=== PATIENT | female | born 1970 | race Caucasian/White ===

== ENCOUNTER 2023-03-23 17:02 | Inpatient (IN) | payer OTHER ==
[~2023-03-23 17:02] MED LIST: Iopamidol-370 76% 500 ML MDV (1 ML CHARGE) ONE
[2023-03-23] MEDS ORDERED: Rocuronium Bromide 10 MG/ML (10ML VIAL) ONE (17:09)
[2023-03-23] MEDS ORDERED: niCARdipine 25 MG/10 ML SDV ONE ×3 (17:24→21:13)
[2023-03-23 17:32] LABS: Hematocrit 40.4 % (36.0-47.0); Hemoglobin 14.1 g/dL (12.0-16.0); Mean Corpuscular HGB CONC 34.9 g/dL (32.0-36.0); Mean Corpuscular Hemoglobin 35.1 pg (27.0-31.0); Mean Corpuscular Volume 100.5 fl (78.0-98.0); Mean Platelet Volume 8.9 fL (7.4-10.4); Platelet Count 196 10x3/uL (130-400); RBC Distribution Width 12.7 % (11.5-14.5); Red Blood Cell (RBC) Count 4.02 mill/uL (4.20-5.40); White Blood Cell (WBC) Count 20.5 10x3/uL (4.8-10.8)
[2023-03-23 17:37] LABS: Delete Auto Diff?? YES; Manual Diff?? YES
[2023-03-23 17:47] LABS: INR-International Normal Ratio 1.3; Prothrombin Time 16.4 sec (12.0-14.7)
[2023-03-23 17:48] LABS: PTT 27.2 sec (22.9-36.1)
[2023-03-23] MEDS ORDERED: Acetaminophen 325 MG Suppository ONE (17:51)
[2023-03-23] MEDS ORDERED: Aspirin 300 MG Suppository ONE (17:51)
[2023-03-23 17:53] LABS: Actual Bicarbonate (HCO3a) 21.7 mEq/L (22-28); Analyzer IN Cardio ER; CO2 Tension 37.6 mmHg (35.0-45.0); Calcium, Ionized (arterial) 1.16 mmol/L (1.12-1.30); Carboxyhemoglobin (COHb) 0.6 gm% (0.0-3.0); Hematocrit-ABG 41 % (36.0-47.0); Hemoglobin (Hb) 13.9 g/dL (12.0-16.0); O2 Tension (PaO2), arterial 258.1 mmHg (80.0-100.0); Potassium - ABG Lab 2.83 mmol/L (3.70-5.30); pH, Arterial 7.379 (7.35-7.45)
[2023-03-23 17:54] LABS: Puncture Site RRA
[2023-03-23 17:56] LABS: Troponin I Less than 0.010 ng/mL (< 0.028)
[2023-03-23] MEDS ORDERED: Sodium Chloride 0.9% 100 ML ONE ×2 (17:58→20:34)
[2023-03-23] MEDS ORDERED: Cefepime 2 GM VIAL ONE (17:58)
[2023-03-23 17:59] LABS: ALT (SGPT) 13 U/L (8-55); AST (SGOT) 16 U/L (5-34); Albumin 4.4 g/dL (3.5-5.0); Alkaline Phosphatase 82 U/L (40-110); Anion Gap 13 mmol/L (10-20); BUN (Urea Nitrogen) 17 mg/dL (9.8-20.1); Bilirubin, Total 1.4 mg/dL (0.2-1.2); CK (CPK) 50 U/L (29-168); Calc. Creatinine Clearance 0 mL/min (70-130); Calcium 9.7 mg/dL (7.8-10.44); Carbon Dioxide 26 mmol/L (22-29); Chloride 100 mmol/L (98-107); Estimated GFR 73; Globulin 3.5 g/dL (2.4-3.5); Glucose 207 mg/dL (70-105); Potassium 3.1 mmol/L (3.5-5.1); Protein, Total 7.9 g/dL (6.0-8.3); Sodium 136 mmol/L (136-145)
[2023-03-23 18:06] LABS: Band 52 % (5-11); CellaVision Operator ID LAB.MJL; Macrocytosis SLIGHT = 6-15 cells HPF (0-5); Metamyelocyte 4 % (0-0); Monocytes 1 % (0-10); Neutrophil 42 % (42-75); Platelet Adequacy Comment Platelets Normal; Reactive Lymphocytes 1 % (0-10); Reflex for Review?? YES; Tear Drops SLIGHT = 2-5 cells HPF (0-1); Total Cell Count 105; Toxic Granulation SLIGHT; Vacuoles SLIGHT
[2023-03-23] MEDS ORDERED: Vancomycin 1 GM/200 ML (FROZEN) BAG ONE (18:17)
[2023-03-23] MEDS ORDERED: fentaNYL 50 mcg/mL 1 mL Vial ONE (18:21)
[2023-03-23 18:23] LABS: Bacteria/HPF None Seen HPF (None Seen); Bilirubin Negative (Negative); Blood, Urine Negative (Negative); CAUTI Indications for Culture Alt mental st,lethar; Clarity Clear (Clear); Glucose, Urine (Dipstick) 50 mg/dL (Negative); Ketone, Urine 60 mg/dL (Negative); Leukocyte Negative Leu/uL (Negative); Mucous/LPF 1+ LPF (<2+); Nitrite Negative (Negative); Protein, Urine (Dipstick) 200 mg/dL (Neg-Trace); RBC/HPF 0-3 HPF (0-3); Specific Gravity, Urine 1.036 (1.002-1.036); Squamous Epithelial None Seen HPF (0-3); Urobilinogen Normal mg/dL (Less than 2); WBC/HPF 0-3 HPF (0-3)
[2023-03-23 18:26] LABS: Urine Culture Reflex No No
[2023-03-23] MEDS ORDERED: Fentanyl CADD 100 ML IV SCH (18:30)
[2023-03-23] MEDS ORDERED: Vancomycin 1 GM in Premix 1 BAG IVPB SCH (18:30)
[2023-03-23 18:55] LABS: SARS-CoV-2 NAA Rapid Test Not Detected (NotDetected)
[2023-03-23 19:20] LABS: Unspun CSF Color PALE YELLOW (Colorless)
[2023-03-23 19:21] LABS: Tube # 2
[2023-03-23 19:23] LABS: Color Of CSF Supernatant COLORLESS (Colorless)
[2023-03-23] MEDS ORDERED: Dexamethasone 10 MG/ML VIAL ONE (19:23)
[2023-03-23 19:34] LABS: CSF Source CSF; Clarity Hazy (Clear); Tube # 1
[2023-03-23 19:35] LABS: CSF Source CSF; Clarity Hazy (Clear); Tube # 4
[2023-03-23 19:41] LABS: CSF, Glucose Less than 5 mg/dl (40-70)
[2023-03-23 19:54] LABS: Cell Count Non Hematic 11 %; Lymphocytes 5 %; Segmented Neutrophils 84 %
[2023-03-23 19:57] LABS: Cell Count Non Hematic 10 %; Lymphocytes 3 %; Segmented Neutrophils 87 %
[2023-03-23 20:20] LABS: CSF, Protein 687 mg/dL (15-40)
[2023-03-23] MEDS ORDERED: levETIRAcetam 500 MG/5 ML VIAL ONE (20:33)
[2023-03-23] MEDS ORDERED: Ondansetron PF 4 MG/2 ML Vial IVP PRN (20:35)
[2023-03-23] MEDS ORDERED: Ondansetron ODT 4 MG TAB PO PRN (20:35)
[2023-03-23 21:20] LABS: Lactic Acid 3.1 mmol/L (0.5-2.2)
[2023-03-23] MEDS ORDERED: Ventilator Sedation Protocol 1 EACH FS SCH (21:30)
[2023-03-23] MEDS ORDERED: Ampicillin 2 GM in Sodium Chloride 0.9% 100 ML IVPB SCH (22:00)
[2023-03-23] MEDS ORDERED: Electrolyte Replacement Protocol 1 EACH FS SCH (22:15)
[2023-03-23] MEDS ORDERED: Potassium Chloride 20 MEQ in Premix 1 BAG IVPB SCH (22:15)
[2023-03-23] MEDS ORDERED: Fentanyl BOLUS 250 ML IVPB PRN (22:15)
[2023-03-23] MEDS ORDERED: Meropenem 1 GM in Sodium Chloride 0.9% 100 ML IVPB SCH ×2 (22:15→23:30)
[2023-03-23] MEDS ORDERED: Propofol BOLUS 1,000 MG/100 ML VIAL IV PRN (22:15)
[2023-03-23] MEDS ORDERED: Propofol 1,000 MG/100 ML VIAL IV PRN (22:15)
[2023-03-23] MEDS ORDERED: DISCONTINUE PREVIOUS NARCOTIC PAIN MEDICATIONS AND BENZODIAZEPINES FS SCH (22:15)
[2023-03-23] MEDS ORDERED: Acyclovir Sodium 800 MG in Sodium Chloride 0.9% 250 ML 250 ML IVPB SCH (22:30)
[2023-03-23] MEDS: Sodium Chloride 0.9% 1,000 ML IV SCH (23:09)
[2023-03-23] MEDS ORDERED: [UNRECOGNIZED DRUG - REMARK] IVPB PRN (23:27)
[2023-03-23] MEDS: Lorazepam 2 MG/ML VIAL SLOW IVP PRN (23:38)
[2023-03-23] MEDS ORDERED: levETIRAcetam 500 MG/5 ML VIAL SLOW IVP SCH (23:45)
[2023-03-23] MEDS ORDERED: SULFAMETHOXAZOLE IVPB SCH (23:59)
[2023-03-23] MEDS ORDERED: TRIMETHOPRIM IVPB SCH (23:59)
[2023-03-23] MEDS ORDERED: Ampicillin 125 MG/5 ML VIAL SLOW IVP SCH (23:59)
[2023-03-23] MEDS ORDERED: DEXTROSE 5% IVPB SCH (23:59)
[2023-03-23] MEDS ORDERED: WATER IVPB SCH (23:59)
[2023-03-24] MEDS: Acetaminophen 650 MG Suppository PR PRN ×2 (01:00→05:31)
[2023-03-24] MEDS: Meropenem 1 GM in Sodium Chloride 0.9% 100 ML IVPB SCH (04:22)
[2023-03-24] MEDS: Vancomycin (BATCH) 1.25 GM in Premix 1 BAG IVPB SCH ×2 (04:25→18:00)
[2023-03-24 05:02] LABS: #Monocytes 1.2 thou/uL (0.11-0.59); #Neutrophils 26.3 thou/uL (1.40-6.50); %Eosinophils 0.1 % (0.0-10.0); %Lymphocytes 1.7 % (21.0-51.0); %Monocytes 4.2 % (0.0-10.0); %Neutrophils 93.1 % (42.0-75.0); Hematocrit 38.2 % (36.0-47.0); Hemoglobin 13.1 g/dL (12.0-16.0); Mean Corpuscular HGB CONC 34.3 g/dL (32.0-36.0); Mean Corpuscular Hemoglobin 34.7 pg (27.0-31.0); Mean Corpuscular Volume 101.3 fl (78.0-98.0); Mean Platelet Volume 9.9 fL (7.4-10.4); Platelet Count 182 10x3/uL (130-400); RBC Distribution Width 12.9 % (11.5-14.5); Red Blood Cell (RBC) Count 3.77 mill/uL (4.20-5.40); White Blood Cell (WBC) Count 28.3 10x3/uL (4.8-10.8)
[2023-03-24 05:12] LABS: Manual Diff?? YES
[2023-03-24 05:29] LABS: Anion Gap 16 mmol/L (10-20); BUN (Urea Nitrogen) 13 mg/dL (9.8-20.1); Calc. Creatinine Clearance 116 mL/min (70-130); Calcium 8.4 mg/dL (7.8-10.44); Carbon Dioxide 20 mmol/L (22-29); Chloride 111 mmol/L (98-107); Estimated GFR 89; Glucose 184 mg/dL (70-105); Magnesium 1.9 mg/dL (1.6-2.6); Potassium 3.4 mmol/L (3.5-5.1); Sodium 144 mmol/L (136-145)
[2023-03-24 05:31] LABS: Phosphorus Less than 1.0 mg/dL (2.3-4.7)
[2023-03-24 05:46] LABS: Anisocytosis MODERATE=16-30 cells HPF (0-5); Band 44 % (5-11); CellaVision Operator ID LAB.CLH1; Macrocytosis SLIGHT = 6-15 cells HPF (0-5); Metamyelocyte 2 % (0-0); Monocytes 2 % (0-10); Neutrophil 52 % (42-75); Platelet Adequacy Comment Platelets Normal; Polychromasia SLIGHT = 2-3 cells HPF (0-2); Total Cell Count 102
[2023-03-24] MEDS ORDERED: Meropenem 1 GM in Sodium Chloride 0.9% 100 ML IVPB SCH ×2 (06:00→08:00)
[2023-03-24 06:58] LABS: Actual Bicarbonate (HCO3a) 23.3 mEq/L (22-28); Base Excess (BEa) 0.4 mEq/L (-2.0 to +3.0); CO2 Tension 32.6 mmHg (35.0-45.0); Calcium, Ionized (arterial) 1.18 mmol/L (1.12-1.30); Carboxyhemoglobin (COHb) 0.3 gm% (0.0-3.0); Hematocrit-ABG 40 % (36.0-47.0); Hemoglobin (Hb) 13.7 g/dL (12.0-16.0); O2 Tension (PaO2), arterial 172.8 mmHg (80.0-100.0); Potassium - ABG Lab 3.16 mmol/L (3.70-5.30); pH, Arterial 7.472 (7.35-7.45)
[2023-03-24] MEDS ORDERED: Potassium Phosphate 30 MMOL in Sodium Chloride 0.9% 250 ML 250 ML IVPB SCH (07:00)
[2023-03-24 07:03] LABS: Puncture Site LRA
[2023-03-24] MEDS ORDERED: Potassium Chloride 20 MEQ in Premix 1 BAG IVPB SCH (08:00)
[2023-03-24] MEDS ORDERED: Magnesium 2 GM/50 ML(in water) 2 GM in Premix 1 BAG IVPB SCH (08:00)
[2023-03-24] MEDS ORDERED: Dexamethasone 10 MG/ML VIAL SLOW IVP SCH (09:00)
[2023-03-24] MEDS: Sodium Chloride 0.9% 1,000 ML IV SCH (09:00)
[2023-03-24] MEDS ORDERED: FLU VACC QS2023(65UP)/MF59C/PF 60 MCG/0.5 ML SYRINGE IM ONE (09:00)
[2023-03-24] MEDS ORDERED: Famotidine/PF 20 mg/2ml Vial SLOW IVP SCH (09:00)
[2023-03-24] MEDS ORDERED: Ketorolac Tromethamine 30 MG/ML VIAL IVP SCH (09:45)
[2023-03-24] MEDS: levETIRAcetam 500 MG/5 ML VIAL SLOW IVP SCH ×2 (09:53→20:25)
[2023-03-24] MEDS: Pantoprazole 40 MG VIAL IVP SCH (09:57)
[2023-03-24] MEDS ORDERED: Multivit, Therapeutic 1 TAB PO SCH (10:00)
[2023-03-24] MEDS ORDERED: Thiamine 100 MG TAB PO SCH (10:00)
[2023-03-24] MEDS ORDERED: Folic Acid 1 MG TAB PO SCH (10:00)
[2023-03-24] MEDS: Lactated Ringer's 1,000 ML IV SCH ×2 (10:07→18:43)
[2023-03-24] MEDS: Dexamethasone 10 MG/ML VIAL SLOW IVP SCH ×3 (10:42→22:00)
[2023-03-24] MEDS ORDERED: dilTIAZem 25 MG/5 ML VIAL ONE (14:16)
[2023-03-24] MEDS ORDERED: dilTIAZem 25 MG/5 ML VIAL SLOW IVP SCH (14:30)
[2023-03-24] MEDS ORDERED: dilTIAZem 125 MG, Admixture Fee 1 EACH in Sodium Chloride 0.9% 100 ML IVPB SCH (14:30)
[2023-03-24] MEDS ORDERED: dilTIAZem 125 MG in Sodium Chloride 0.9% 100 ML IVPB SCH (14:30)
[2023-03-24] MEDS: Meropenem 2 GM, Admixture Fee 1 EACH in Sodium Chloride 0.9% 100 ML IVPB SCH ×2 (14:40→22:00)
[2023-03-24 14:47] LABS: Phosphorus 2.4 mg/dL (2.3-4.7)
[2023-03-24 15:00] LABS: Magnesium 2.8 mg/dL (1.6-2.6)
[2023-03-24] MEDS ORDERED: Amiodarone 150 MG, Admixture Fee 1 EACH in Dextrose 5% in Water 100 ML IVPB SCH (17:30)
[2023-03-24 17:32] LABS: Anion Gap 15 mmol/L (10-20); BUN (Urea Nitrogen) 13 mg/dL (9.8-20.1); Calc. Creatinine Clearance 128 mL/min (70-130); Carbon Dioxide 20 mmol/L (22-29); Chloride 114 mmol/L (98-107); Potassium 3.6 mmol/L (3.5-5.1); Sodium 145 mmol/L (136-145)
[2023-03-24 17:33] LABS: Calcium 8.8 mg/dL (7.8-10.44); Estimated GFR 102; Glucose 167 mg/dL (70-105)
[2023-03-24] MEDS: Amiodarone 450 MG, Admixture Fee 1 EACH in Dextrose 5% in Water 250 ML IVPB SCH (18:08)
[2023-03-25] MEDS: Acetaminophen 325 MG TAB PO PRN ×2 (02:24→02:25)
[2023-03-25] MEDS: Dexamethasone 10 MG/ML VIAL SLOW IVP SCH ×4 (03:53→22:04)
[2023-03-25 04:23] LABS: Hematocrit 39.3 % (36.0-47.0); Hemoglobin 13.2 g/dL (12.0-16.0); Mean Corpuscular HGB CONC 33.6 g/dL (32.0-36.0); Mean Corpuscular Hemoglobin 35.1 pg (27.0-31.0); Mean Platelet Volume 9.9 fL (7.4-10.4); Platelet Count 194 10x3/uL (130-400); RBC Distribution Width 13.3 % (11.5-14.5); Red Blood Cell (RBC) Count 3.76 mill/uL (4.20-5.40); White Blood Cell (WBC) Count 29.7 10x3/uL (4.8-10.8)
[2023-03-25 04:54] LABS: Phosphorus 2.4 mg/dL (2.3-4.7)
[2023-03-25 04:58] LABS: Anion Gap 13 mmol/L (10-20); BUN (Urea Nitrogen) 23 mg/dL (9.8-20.1); Calc. Creatinine Clearance 103 mL/min (70-130); Carbon Dioxide 24 mmol/L (22-29); Chloride 111 mmol/L (98-107); Estimated GFR 79; Glucose 190 mg/dL (70-105); Magnesium 2.7 mg/dL (1.6-2.6); Potassium 3.6 mmol/L (3.5-5.1); Sodium 144 mmol/L (136-145)
[2023-03-25 05:19] LABS: Delete Auto Diff?? YES; Manual Diff?? YES
[2023-03-25] MEDS ORDERED: Artificial Tear Sol 15 ML BOT EA EYE PRN (05:43)
[2023-03-25 05:51] LABS: Vancomycin, Trough 12.5 ug/mL
[2023-03-25] MEDS: Vancomycin (BATCH) 1.25 GM in Premix 1 BAG IVPB SCH ×3 (06:22→14:41)
[2023-03-25] MEDS: Meropenem 2 GM, Admixture Fee 1 EACH in Sodium Chloride 0.9% 100 ML IVPB SCH ×3 (06:22→22:04)
[2023-03-25] MEDS: Lactated Ringer's 1,000 ML IV SCH ×2 (06:27→15:11)
[2023-03-25 07:19] LABS: Actual Bicarbonate (HCO3a) 24.6 mEq/L (22-28); Base Excess (BEa) -1.3 mEq/L (-2.0 to +3.0); CO2 Tension 45.5 mmHg (35.0-45.0); Calcium, Ionized (arterial) 1.22 mmol/L (1.12-1.30); Carboxyhemoglobin (COHb) 0.5 gm% (0.0-3.0); Hematocrit-ABG 48 % (36.0-47.0); Hemoglobin (Hb) 16.2 g/dL (12.0-16.0); O2 Tension (PaO2), arterial 78.3 mmHg (80.0-100.0); Potassium - ABG Lab 3.73 mmol/L (3.70-5.30); pH, Arterial 7.351 (7.35-7.45)
[2023-03-25 07:21] LABS: CellaVision Operator ID LAB.GE; Platelet Adequacy Comment Platelets Normal; Polychromasia SLIGHT = 2-3 cells HPF (0-2)
[2023-03-25 07:30] LABS: ALV-art Gradient 150.025 mmHg (0-20); Puncture Site RRA
[2023-03-25 09:27] LABS: Band 33 % (5-11); Lymphocytes 2 % (21-51); Macrocytosis SLIGHT = 6-15 cells HPF (0-5); Metamyelocyte 3 % (0-0); Monocytes 3 % (0-10); Neutrophil 59 % (42-75); Total Cell Count 103; Toxic Granulation SLIGHT; Vacuoles SLIGHT
[2023-03-25] MEDS: levETIRAcetam 500 MG/5 ML VIAL SLOW IVP SCH ×2 (09:56→20:15)
[2023-03-25] MEDS: Thiamine 100 MG TAB PO SCH (09:57)
[2023-03-25] MEDS: Pantoprazole 40 MG VIAL IVP SCH (09:57)
[2023-03-25] MEDS: Folic Acid 1 MG TAB PO SCH (09:57)
[2023-03-25] MEDS: Multivit, Therapeutic 1 TAB PO SCH (09:57)
[2023-03-25] MEDS: Amiodarone 450 MG, Admixture Fee 1 EACH in Dextrose 5% in Water 250 ML IVPB SCH (14:05)
[2023-03-25] MEDS ORDERED: Refresh Lacri-lube Opth Oint 7 GM TUBE EA EYE PRN (17:24)
[2023-03-25] MEDS: MINERAL OIL/WHITE PETROLATUM 3.5 GM TUBE EA EYE PRN (18:44)
[2023-03-25 19:57] LABS: Mean Corpuscular Volume 104.5 fl (78.0-98.0)
[2023-03-26] MEDS: Lorazepam 2 MG/ML VIAL SLOW IVP PRN (01:13)
[2023-03-26] MEDS: Lactated Ringer's 1,000 ML IV SCH ×3 (01:17→21:23)
[2023-03-26 04:12] LABS: Hematocrit 37.8 % (36.0-47.0); Hemoglobin 12.6 g/dL (12.0-16.0); Mean Corpuscular HGB CONC 33.3 g/dL (32.0-36.0); Mean Corpuscular Hemoglobin 35.4 pg (27.0-31.0); Mean Corpuscular Volume 106.2 fl (78.0-98.0); Mean Platelet Volume 9.6 fL (7.4-10.4); Platelet Count 186 10x3/uL (130-400); RBC Distribution Width 13.4 % (11.5-14.5); Red Blood Cell (RBC) Count 3.56 mill/uL (4.20-5.40); White Blood Cell (WBC) Count 22.3 10x3/uL (4.8-10.8)
[2023-03-26 04:13] LABS: Delete Auto Diff?? YES; Manual Diff?? YES
[2023-03-26] MEDS: Amiodarone 450 MG, Admixture Fee 1 EACH in Dextrose 5% in Water 250 ML IVPB SCH (04:17)
[2023-03-26] MEDS: Dexamethasone 10 MG/ML VIAL SLOW IVP SCH ×4 (04:17→21:20)
[2023-03-26 04:33] LABS: Band 2 % (5-11); CellaVision Operator ID lab.abc; Lymphocytes 3 % (21-51); Macrocytosis SLIGHT = 6-15 cells HPF (0-5); Monocytes 1 % (0-10); Neutrophil 94 % (42-75); Platelet Adequacy Comment Platelets Normal; Polychromasia SLIGHT = 2-3 cells HPF (0-2); Smudge Cells 6.9 %; Total Cell Count 101
[2023-03-26 05:53] LABS: Anion Gap 10 mmol/L (10-20); BUN (Urea Nitrogen) 31 mg/dL (9.8-20.1); Calc. Creatinine Clearance 115 mL/min (70-130); Calcium 8.9 mg/dL (7.8-10.44); Carbon Dioxide 28 mmol/L (22-29); Chloride 111 mmol/L (98-107); Estimated GFR 87; Glucose 218 mg/dL (70-105); Phosphorus 1.9 mg/dL (2.3-4.7); Potassium 4.3 mmol/L (3.5-5.1); Sodium 145 mmol/L (136-145)
[2023-03-26] MEDS ORDERED: Glucagon 1 MG/ML KIT IM PRN (05:59)
[2023-03-26] MEDS ORDERED: Dextrose 5% in Water 1,000 ML IV PRN (05:59)
[2023-03-26] MEDS ORDERED: Dextrose 50% Abboject 50 ML SYRINGE SLOW IVP PRN (05:59)
[2023-03-26] MEDS: Meropenem 2 GM, Admixture Fee 1 EACH in Sodium Chloride 0.9% 100 ML IVPB SCH (06:04)
[2023-03-26] MEDS: hydrALAZINE 20 MG/ML VIAL SLOW IVP PRN ×2 (07:17→12:21)
[2023-03-26] MEDS: Fentanyl CADD 100 ML IV SCH ×2 (07:20→21:08)
[2023-03-26 07:27] LABS: Actual Bicarbonate (HCO3a) 26.6 mEq/L (22-28); Base Excess (BEa) 0.6 mEq/L (-2.0 to +3.0); Calcium, Ionized (arterial) 1.22 mmol/L (1.12-1.30); Carboxyhemoglobin (COHb) 0.4 gm% (0.0-3.0); Hematocrit-ABG 39 % (36.0-47.0); Hemoglobin (Hb) 13.3 g/dL (12.0-16.0); O2 Tension (PaO2), arterial 98.9 mmHg (80.0-100.0); Potassium - ABG Lab 4.26 mmol/L (3.70-5.30); pH, Arterial 7.361 (7.35-7.45)
[2023-03-26 07:59] LABS: Puncture Site RRA
[2023-03-26] MEDS ORDERED: Potassium Phosphate 15 MMOL in Sodium Chloride 0.9% 100 ML IVPB SCH (08:00)
[2023-03-26] MEDS ORDERED: cefTRIAXone Sodium 2,000 MG in Syringe 0 ML IVPB SCH (09:00)
[2023-03-26] MEDS: Multivit, Therapeutic 1 TAB PO SCH (09:58)
[2023-03-26] MEDS: levETIRAcetam 500 MG/5 ML VIAL SLOW IVP SCH ×2 (09:58→20:22)
[2023-03-26] MEDS: Thiamine 100 MG TAB PO SCH (09:58)
[2023-03-26] MEDS: Pantoprazole 40 MG VIAL IVP SCH (09:58)
[2023-03-26] MEDS: Folic Acid 1 MG TAB PO SCH (09:58)
[2023-03-26] MEDS: cefTRIAXone\\ROCEPHIN 2 GM in Sodium Chloride 0.9% 100 ML IVPB SCH ×2 (09:59→20:22)
[2023-03-26] MEDS: Amiodarone 200 MG TAB PO SCH ×2 (13:35→20:22)
[2023-03-26] MEDS: HumaLOG 300 UNITS/3 ML VIAL SC PRN (19:44)
[2023-03-27] MEDS: HumaLOG 300 UNITS/3 ML VIAL SC PRN ×5 (01:33→23:41)
[2023-03-27] MEDS: Dexamethasone 10 MG/ML VIAL SLOW IVP SCH ×4 (04:10→20:55)
[2023-03-27 04:24] LABS: #Monocytes 0.4 thou/uL (0.11-0.59); #Neutrophils 8.9 thou/uL (1.40-6.50); %Basophils 0.2 % (0.0-1.0); %Lymphocytes 4.8 % (21.0-51.0); %Monocytes 4.4 % (0.0-10.0); %Neutrophils 88.7 % (42.0-75.0); Hematocrit 38.9 % (36.0-47.0); Hemoglobin 12.7 g/dL (12.0-16.0); Mean Corpuscular HGB CONC 32.6 g/dL (32.0-36.0); Mean Corpuscular Hemoglobin 34.6 pg (27.0-31.0); Mean Platelet Volume 9.3 fL (7.4-10.4); Platelet Count 217 10x3/uL (130-400); RBC Distribution Width 13.7 % (11.5-14.5); Red Blood Cell (RBC) Count 3.67 mill/uL (4.20-5.40); White Blood Cell (WBC) Count 10.1 10x3/uL (4.8-10.8)
[2023-03-27 04:45] LABS: Anion Gap 10 mmol/L (10-20); BUN (Urea Nitrogen) 34 mg/dL (9.8-20.1); Calc. Creatinine Clearance 126 mL/min (70-130); Calcium 8.7 mg/dL (7.8-10.44); Carbon Dioxide 30 mmol/L (22-29); Chloride 113 mmol/L (98-107); Estimated GFR 97; Glucose 201 mg/dL (70-105); Phosphorus 1.7 mg/dL (2.3-4.7); Potassium 4.6 mmol/L (3.5-5.1); Sodium 148 mmol/L (136-145)
[2023-03-27] MEDS: hydrALAZINE 20 MG/ML VIAL SLOW IVP PRN ×2 (06:20→14:15)
[2023-03-27 07:15] LABS: Actual Bicarbonate (HCO3a) 28.9 mEq/L (22-28); Base Excess (BEa) 4.3 mEq/L (-2.0 to +3.0); CO2 Tension 42.6 mmHg (35.0-45.0); Calcium, Ionized (arterial) 1.23 mmol/L (1.12-1.30); Carboxyhemoglobin (COHb) 0.6 gm% (0.0-3.0); Hematocrit-ABG 46 % (36.0-47.0); Hemoglobin (Hb) 15.5 g/dL (12.0-16.0); O2 Tension (PaO2), arterial 75.1 mmHg (80.0-100.0); Potassium - ABG Lab 4.47 mmol/L (3.70-5.30); pH, Arterial 7.449 (7.35-7.45)
[2023-03-27] MEDS: Lactated Ringer's 1,000 ML IV SCH (07:27)
[2023-03-27 07:37] LABS: Puncture Site RRA
[2023-03-27] MEDS: MINERAL OIL/WHITE PETROLATUM 3.5 GM TUBE EA EYE PRN ×2 (07:40→16:30)
[2023-03-27] MEDS ORDERED: Potassium Phosphate 15 MMOL in Sodium Chloride 0.9% 100 ML IVPB SCH (08:00)
[2023-03-27] MEDS ORDERED: Dextrose 5 %-0.45 % NaCl 1,000 ML IV SCH (08:45)
[2023-03-27] MEDS: cefTRIAXone\\ROCEPHIN 2 GM in Sodium Chloride 0.9% 100 ML IVPB SCH ×2 (09:59→20:52)
[2023-03-27] MEDS: Thiamine 100 MG TAB PO SCH (09:59)
[2023-03-27] MEDS: Folic Acid 1 MG TAB PO SCH (10:00)
[2023-03-27] MEDS: Metoprolol Tartrate 25 MG TAB PER TUBE SCH ×2 (10:00→20:55)
[2023-03-27] MEDS: Multivit, Therapeutic 1 TAB PO SCH (10:00)
[2023-03-27] MEDS: levETIRAcetam 500 MG/5 ML VIAL SLOW IVP SCH ×2 (10:00→20:52)
[2023-03-27] MEDS: Pantoprazole 40 MG VIAL IVP SCH (10:00)
[2023-03-27] MEDS: Amiodarone 200 MG TAB PO SCH ×3 (10:00→20:55)
[2023-03-27] MEDS: Fentanyl CADD 100 ML IV SCH (11:03)
[2023-03-27] MEDS: Dextrose 5% in Water 1,000 ML IV SCH ×2 (11:20→19:13)
[2023-03-27] MEDS: Lorazepam 2 MG/ML VIAL SLOW IVP PRN ×2 (11:58→20:58)
[2023-03-27] MEDS ORDERED: Amlodipine 5 MG TAB PO SCH (14:45)
[2023-03-28 04:23] LABS: #Monocytes 0.6 thou/uL (0.11-0.59); #Neutrophils 7.3 thou/uL (1.40-6.50); %Basophils 0.4 % (0.0-1.0); %Lymphocytes 4.1 % (21.0-51.0); %Monocytes 7.3 % (0.0-10.0); %Neutrophils 86.1 % (42.0-75.0); Hematocrit 41.9 % (36.0-47.0); Hemoglobin 13.7 g/dL (12.0-16.0); Mean Corpuscular HGB CONC 32.7 g/dL (32.0-36.0); Mean Corpuscular Hemoglobin 34.3 pg (27.0-31.0); Mean Platelet Volume 9.6 fL (7.4-10.4); Platelet Count 280 10x3/uL (130-400); RBC Distribution Width 13.6 % (11.5-14.5); Red Blood Cell (RBC) Count 3.99 mill/uL (4.20-5.40); White Blood Cell (WBC) Count 8.5 10x3/uL (4.8-10.8)
[2023-03-28] MEDS: Dextrose 5% in Water 1,000 ML IV SCH (04:34)
[2023-03-28] MEDS: Dexamethasone 10 MG/ML VIAL SLOW IVP SCH ×4 (04:34→20:58)
[2023-03-28] MEDS: Fentanyl CADD 100 ML IV SCH (06:02)
[2023-03-28 06:19] LABS: Anion Gap 12 mmol/L (10-20); BUN (Urea Nitrogen) 29 mg/dL (9.8-20.1); Calc. Creatinine Clearance 129 mL/min (70-130); Calcium 8.6 mg/dL (7.8-10.44); Carbon Dioxide 29 mmol/L (22-29); Chloride 108 mmol/L (98-107); Estimated GFR 98; Glucose 264 mg/dL (70-105); Potassium 4.5 mmol/L (3.5-5.1); Sodium 144 mmol/L (136-145)
[2023-03-28] MEDS: HumaLOG 300 UNITS/3 ML VIAL SC PRN ×4 (06:44→22:02)
[2023-03-28 07:58] LABS: Actual Bicarbonate (HCO3a) 28.3 mEq/L (22-28); Base Excess (BEa) 3.6 mEq/L (-2.0 to +3.0); CO2 Tension 42.8 mmHg (35.0-45.0); Calcium, Ionized (arterial) 1.19 mmol/L (1.12-1.30); Carboxyhemoglobin (COHb) 0.5 gm% (0.0-3.0); Hematocrit-ABG 43 % (36.0-47.0); Hemoglobin (Hb) 14.7 g/dL (12.0-16.0); O2 Tension (PaO2), arterial 77.7 mmHg (80.0-100.0); Potassium - ABG Lab 4.54 mmol/L (3.70-5.30); pH, Arterial 7.438 (7.35-7.45)
[2023-03-28 08:02] LABS: Puncture Site RRA
[2023-03-28] MEDS ORDERED: Potassium Phosphate 15 MMOL in Sodium Chloride 0.9% 100 ML IVPB SCH (08:30)
[2023-03-28] MEDS ORDERED: Insulin Glargine 30 UNITS/0.3 ML VIAL SC SCH (09:00)
[2023-03-28] MEDS ORDERED: Amlodipine 5 MG TAB PO SCH (09:00)
[2023-03-28] MEDS: Amlodipine 10 MG TAB PO SCH (09:40)
[2023-03-28] MEDS: Amiodarone 200 MG TAB PO SCH ×3 (09:41→20:57)
[2023-03-28] MEDS: Thiamine 100 MG TAB PO SCH (09:41)
[2023-03-28] MEDS: Metoprolol Tartrate 25 MG TAB PER TUBE SCH ×2 (09:42→20:57)
[2023-03-28] MEDS: Multivit, Therapeutic 1 TAB PO SCH (09:42)
[2023-03-28] MEDS: Folic Acid 1 MG TAB PO SCH (09:42)
[2023-03-28] MEDS: cefTRIAXone\\ROCEPHIN 2 GM in Sodium Chloride 0.9% 100 ML IVPB SCH ×2 (09:53→20:58)
[2023-03-28] MEDS: Pantoprazole 40 MG VIAL IVP SCH (09:55)
[2023-03-28] MEDS: levETIRAcetam 500 MG/5 ML VIAL SLOW IVP SCH ×2 (09:56→20:58)
[2023-03-29] MEDS: Dexamethasone 10 MG/ML VIAL SLOW IVP SCH ×4 (03:58→20:48)
[2023-03-29] MEDS: HumaLOG 300 UNITS/3 ML VIAL SC PRN ×4 (04:00→22:06)
[2023-03-29 05:24] LABS: #Basophils 0.1 thou/uL (0.0-0.2); #Monocytes 0.6 thou/uL (0.11-0.59); #Neutrophils 9.5 thou/uL (1.40-6.50); %Basophils 0.6 % (0.0-1.0); %Lymphocytes 4.1 % (21.0-51.0); %Monocytes 5.3 % (0.0-10.0); %Neutrophils 87.2 % (42.0-75.0); Hematocrit 43.7 % (36.0-47.0); Hemoglobin 14.2 g/dL (12.0-16.0); Mean Corpuscular HGB CONC 32.5 g/dL (32.0-36.0); Mean Corpuscular Hemoglobin 34.3 pg (27.0-31.0); Mean Corpuscular Volume 105.6 fl (78.0-98.0); Mean Platelet Volume 10.1 fL (7.4-10.4); Platelet Count 349 10x3/uL (130-400); RBC Distribution Width 13.4 % (11.5-14.5); Red Blood Cell (RBC) Count 4.14 mill/uL (4.20-5.40); White Blood Cell (WBC) Count 10.9 10x3/uL (4.8-10.8)
[2023-03-29 06:09] LABS: Phosphorus 3.2 mg/dL (2.3-4.7)
[2023-03-29 06:19] LABS: Anion Gap 13 mmol/L (10-20); BUN (Urea Nitrogen) 35 mg/dL (9.8-20.1); Calc. Creatinine Clearance 124 mL/min (70-130); Calcium 8.7 mg/dL (7.8-10.44); Carbon Dioxide 31 mmol/L (22-29); Chloride 108 mmol/L (98-107); Estimated GFR 94; Glucose 186 mg/dL (70-105); Potassium 4.7 mmol/L (3.5-5.1); Sodium 147 mmol/L (136-145)
[2023-03-29] MEDS ORDERED: Dexmedetomidine In 0.9 % NaCl 100 ML IVPB SCH (08:45)
[2023-03-29] MEDS: Dexmedetomidine 400 MCG, Admixture Fee 1 EACH in Sodium Chloride 0.9% 96 ML IVPB SCH ×2 (09:23→18:41)
[2023-03-29] MEDS: Amiodarone 200 MG TAB PO SCH ×3 (09:27→20:46)
[2023-03-29] MEDS: cefTRIAXone\\ROCEPHIN 2 GM in Sodium Chloride 0.9% 100 ML IVPB SCH ×2 (09:27→20:46)
[2023-03-29] MEDS: Thiamine 100 MG TAB PO SCH (09:27)
[2023-03-29] MEDS: Folic Acid 1 MG TAB PO SCH (09:28)
[2023-03-29] MEDS: Pantoprazole 40 MG VIAL IVP SCH (09:28)
[2023-03-29] MEDS: Insulin Glargine 30 UNITS/0.3 ML VIAL SC SCH (09:28)
[2023-03-29] MEDS: Amlodipine 10 MG TAB PO SCH (09:28)
[2023-03-29] MEDS: levETIRAcetam 500 MG/5 ML VIAL SLOW IVP SCH ×2 (09:28→20:48)
[2023-03-29] MEDS: Multivit, Therapeutic 1 TAB PO SCH (09:28)
[2023-03-29] MEDS: Sodium Chloride 0.45% 1,000 ML IV SCH ×2 (09:30→21:59)
[2023-03-29] MEDS: Metoprolol Tartrate 25 MG TAB PER TUBE SCH ×2 (09:32→21:05)
[2023-03-29 09:42] LABS: HBCM Index 0.24 S/CO (0-0.79); Hep A IgM AB Non-Reactive S/CO (NonReactive); Hep A IgM S/CO 0.18 S/CO (0-0.79); Hep C IgG Ab Non-Reactive S/CO (NonReactive); Hep C Index 0.19 S/CO (0-0.79); Hepatitis B Core IgM Abs Non-Reactive S/CO (NonReactive)
[2023-03-29 14:20] LABS: Hep B Surf Ag Reflx Confirmation S/CO (NonReactive)
[2023-03-29] MEDS: Lorazepam 2 MG/ML VIAL SLOW IVP PRN (22:00)
[2023-03-30] MEDS: HumaLOG 300 UNITS/3 ML VIAL SC PRN ×4 (03:44→21:17)
[2023-03-30] MEDS: Dexamethasone 10 MG/ML VIAL SLOW IVP SCH ×4 (03:44→21:16)
[2023-03-30 04:06] LABS: #Monocytes 0.5 thou/uL (0.11-0.59); #Neutrophils 7.9 thou/uL (1.40-6.50); %Basophils 0.1 % (0.0-1.0); %Lymphocytes 7.4 % (21.0-51.0); %Monocytes 5.2 % (0.0-10.0); %Neutrophils 84.2 % (42.0-75.0); Hematocrit 42.8 % (36.0-47.0); Mean Corpuscular HGB CONC 32.7 g/dL (32.0-36.0); Mean Corpuscular Hemoglobin 34.1 pg (27.0-31.0); Mean Corpuscular Volume 104.1 fl (78.0-98.0); Mean Platelet Volume 9.8 fL (7.4-10.4); Platelet Count 338 10x3/uL (130-400); RBC Distribution Width 12.9 % (11.5-14.5); Red Blood Cell (RBC) Count 4.11 mill/uL (4.20-5.40); White Blood Cell (WBC) Count 9.3 10x3/uL (4.8-10.8)
[2023-03-30 07:03] LABS: Actual Bicarbonate (HCO3a) 23.2 mEq/L (22-28); Base Excess (BEa) -0.2 mEq/L (-2.0 to +3.0); CO2 Tension 34.6 mmHg (35.0-45.0); Calcium, Ionized (arterial) 1.15 mmol/L (1.12-1.30); Carboxyhemoglobin (COHb) 0.7 gm% (0.0-3.0); Hematocrit-ABG 43 % (36.0-47.0); Hemoglobin (Hb) 14.5 g/dL (12.0-16.0); O2 Tension (PaO2), arterial 80.5 mmHg (80.0-100.0); Potassium - ABG Lab 4.29 mmol/L (3.70-5.30); pH, Arterial 7.445 (7.35-7.45)
[2023-03-30 07:09] LABS: Puncture Site RRA
[2023-03-30 07:54] LABS: Anion Gap 12 mmol/L (10-20); BUN (Urea Nitrogen) 33 mg/dL (9.8-20.1); Calc. Creatinine Clearance 140 mL/min (70-130); Calcium 8.3 mg/dL (7.8-10.44); Carbon Dioxide 30 mmol/L (22-29); Chloride 106 mmol/L (98-107); Estimated GFR 100; Glucose 155 mg/dL (70-105); Potassium 4.2 mmol/L (3.5-5.1); Sodium 144 mmol/L (136-145)
[2023-03-30] MEDS ORDERED: EPINEPHrine 1 MG/ML VIAL ONE (08:41)
[2023-03-30] MEDS ORDERED: Bupivacaine PF 0.5% 30 ML VIAL ONE (08:42)
[2023-03-30] MEDS ORDERED: Lidocaine 2% PF 5 ML VIAL ONE (08:42)
[2023-03-30] MEDS: Pantoprazole 40 MG VIAL IVP SCH (08:43)
[2023-03-30] MEDS: levETIRAcetam 500 MG/5 ML VIAL SLOW IVP SCH ×2 (08:43→21:15)
[2023-03-30] MEDS: cefTRIAXone\\ROCEPHIN 2 GM in Sodium Chloride 0.9% 100 ML IVPB SCH ×2 (08:43→21:16)
[2023-03-30] MEDS ORDERED: Fentanyl 250 MCG/5 ML VIAL ONE (08:52)
[2023-03-30] MEDS ORDERED: ePHEDrine Sulfate 50 MG/10 ML VIAL ONE ×2 (09:04→09:38)
[2023-03-30] MEDS ORDERED: Glycopyrrolate 0.2 MG/ML 5 ML SYRINGE ONE ×2 (09:04→09:34)
[2023-03-30] MEDS ORDERED: Ondansetron PF 4 MG/2 ML Vial ONE ×2 (09:04→09:31)
[2023-03-30] MEDS ORDERED: Rocuronium Bromide 10 MG/ML (10ML VIAL) ONE (09:09)
[2023-03-30] MEDS ORDERED: SUGAMMADEX SODIUM 200 MG/2 ML VIAL ONE (09:55)
[2023-03-30] MEDS: Folic Acid 1 MG TAB PO SCH (10:28)
[2023-03-30] MEDS: Amlodipine 10 MG TAB PO SCH (10:28)
[2023-03-30] MEDS: Thiamine 100 MG TAB PO SCH (10:29)
[2023-03-30] MEDS: Metoprolol Tartrate 25 MG TAB PER TUBE SCH ×2 (10:29→21:16)
[2023-03-30] MEDS: Insulin Glargine 30 UNITS/0.3 ML VIAL SC SCH (10:29)
[2023-03-30] MEDS: Multivit, Therapeutic 1 TAB PO SCH (10:29)
[2023-03-30] MEDS: Amiodarone 200 MG TAB PO SCH ×3 (10:29→21:16)
[2023-03-30] MEDS ORDERED: Vecuronium 10 MG VIAL ONE (13:02)
[2023-03-30] MEDS: Lorazepam 2 MG/ML VIAL SLOW IVP PRN (13:10)
[2023-03-30] MEDS: Sodium Chloride 0.45% 1,000 ML IV SCH (13:14)
[2023-03-30] MEDS ORDERED: Vecuronium 10 MG VIAL IVP SCH (13:15)
[2023-03-30] MEDS: Morphine 2 MG/ML VIAL SLOW IVP PRN (13:34)
[2023-03-30 14:15] LABS: Hep B Surface AG-Rflx Sendout Confirm. indicated (Negative)
[2023-03-30] MEDS ORDERED: Sterile Water 10 ML VIAL FS PRN (14:39)
[2023-03-30] MEDS: Fentanyl CADD 100 ML IV SCH (14:48)
[2023-03-30] MEDS: Vecuronium 10 MG VIAL IVP PRN ×6 (15:29→23:00)
[2023-03-30] MEDS: Dexmedetomidine 400 MCG, Admixture Fee 1 EACH in Sodium Chloride 0.9% 96 ML IVPB SCH (20:17)
[2023-03-30 20:40] LABS: #Monocytes 0.7 thou/uL (0.11-0.59); #Neutrophils 13.9 thou/uL (1.40-6.50); %Basophils 0.1 % (0.0-1.0); %Lymphocytes 2.4 % (21.0-51.0); %Monocytes 4.4 % (0.0-10.0); %Neutrophils 90.9 % (42.0-75.0); Hematocrit 40.1 % (36.0-47.0); Hemoglobin 13.4 g/dL (12.0-16.0); Mean Corpuscular HGB CONC 33.4 g/dL (32.0-36.0); Mean Corpuscular Hemoglobin 35.2 pg (27.0-31.0); Mean Corpuscular Volume 105.2 fl (78.0-98.0); Mean Platelet Volume 9.7 fL (7.4-10.4); Platelet Count 394 10x3/uL (130-400); RBC Distribution Width 13.1 % (11.5-14.5); Red Blood Cell (RBC) Count 3.81 mill/uL (4.20-5.40); White Blood Cell (WBC) Count 15.2 10x3/uL (4.8-10.8)
[2023-03-31] MEDS: Vecuronium 10 MG VIAL IVP PRN ×5 (00:29→06:49)
[2023-03-31] MEDS: Sodium Chloride 0.45% 1,000 ML IV SCH ×3 (01:00→15:31)
[2023-03-31] MEDS: Dexamethasone 10 MG/ML VIAL SLOW IVP SCH ×4 (03:30→21:04)
[2023-03-31 03:55] LABS: #Monocytes 0.5 thou/uL (0.11-0.59); #Neutrophils 12.9 thou/uL (1.40-6.50); %Basophils 0.1 % (0.0-1.0); %Lymphocytes 3.8 % (21.0-51.0); %Monocytes 3.6 % (0.0-10.0); %Neutrophils 90.1 % (42.0-75.0); Hematocrit 32.2 % (36.0-47.0); Mean Corpuscular Hemoglobin 34.3 pg (27.0-31.0); Mean Corpuscular Volume 107.3 fl (78.0-98.0); Mean Platelet Volume 9.6 fL (7.4-10.4); Platelet Count 436 10x3/uL (130-400); White Blood Cell (WBC) Count 14.3 10x3/uL (4.8-10.8)
[2023-03-31 03:59] LABS: Platelet Count 385 10x3/uL (130-400)
[2023-03-31 04:16] LABS: Anion Gap 10 mmol/L (10-20); BUN (Urea Nitrogen) 29 mg/dL (9.8-20.1); Calc. Creatinine Clearance 140 mL/min (70-130); Calcium 7.8 mg/dL (7.8-10.44); Carbon Dioxide 30 mmol/L (22-29); Chloride 108 mmol/L (98-107); Estimated GFR 100; Glucose 153 mg/dL (70-105); Sodium 143 mmol/L (136-145)
[2023-03-31 04:51] LABS: Hemoglobin 10.3 g/dL (12.0-16.0)
[2023-03-31 05:20] LABS: Fibrinogen 549 mg/dL (253-463)
[2023-03-31 05:22] LABS: D-Dimer Test 1.31 *mcg/mL (0.27-0.43); PTT 24.6 sec (22.9-36.1); Prothrombin Time 13.6 sec (12.0-14.7)
[2023-03-31] MEDS: Amiodarone 200 MG TAB PO SCH ×3 (09:32→21:04)
[2023-03-31] MEDS: levETIRAcetam 500 MG/5 ML VIAL SLOW IVP SCH ×2 (09:32→21:04)
[2023-03-31] MEDS: Pantoprazole 40 MG VIAL IVP SCH (09:32)
[2023-03-31] MEDS: cefTRIAXone\\ROCEPHIN 2 GM in Sodium Chloride 0.9% 100 ML IVPB SCH ×2 (09:32→21:04)
[2023-03-31] MEDS: Folic Acid 1 MG TAB PO SCH (09:32)
[2023-03-31] MEDS: Amlodipine 10 MG TAB PO SCH (09:32)
[2023-03-31] MEDS: Insulin Glargine 30 UNITS/0.3 ML VIAL SC SCH (09:32)
[2023-03-31] MEDS: Thiamine 100 MG TAB PO SCH (09:32)
[2023-03-31] MEDS: Multivit, Therapeutic 1 TAB PO SCH (09:33)
[2023-03-31 10:30] LABS: Hematocrit 38.2 % (36.0-47.0); Hemoglobin 12.3 g/dL (12.0-16.0)
[2023-03-31] MEDS: Metoprolol Tartrate 25 MG TAB PER TUBE SCH ×2 (10:46→21:04)
[2023-03-31 15:14] LABS: #Monocytes 0.5 thou/uL (0.11-0.59); #Neutrophils 11.6 thou/uL (1.40-6.50); %Basophils 0.2 % (0.0-1.0); %Lymphocytes 2.8 % (21.0-51.0); %Monocytes 3.5 % (0.0-10.0); %Neutrophils 90.1 % (42.0-75.0); Hematocrit 37.7 % (36.0-47.0); Hemoglobin 12.2 g/dL (12.0-16.0); Mean Corpuscular HGB CONC 32.4 g/dL (32.0-36.0); Mean Corpuscular Hemoglobin 34.1 pg (27.0-31.0); Mean Corpuscular Volume 105.3 fl (78.0-98.0); Mean Platelet Volume 9.8 fL (7.4-10.4); Platelet Count 401 10x3/uL (130-400); RBC Distribution Width 12.6 % (11.5-14.5); Red Blood Cell (RBC) Count 3.58 mill/uL (4.20-5.40); White Blood Cell (WBC) Count 12.8 10x3/uL (4.8-10.8)
[2023-03-31] MEDS: HumaLOG 300 UNITS/3 ML VIAL SC PRN ×2 (16:37→22:15)
[2023-03-31] MEDS: Dexmedetomidine 400 MCG, Admixture Fee 1 EACH in Sodium Chloride 0.9% 96 ML IVPB SCH (17:00)
[2023-04-01] MEDS: Sodium Chloride 0.45% 1,000 ML IV SCH ×3 (03:00→14:59)
[2023-04-01 04:12] LABS: #Monocytes 0.5 thou/uL (0.11-0.59); #Neutrophils 11.8 thou/uL (1.40-6.50); %Basophils 0.2 % (0.0-1.0); %Lymphocytes 3.4 % (21.0-51.0); %Neutrophils 90.9 % (42.0-75.0); Hematocrit 34.6 % (36.0-47.0); Hemoglobin 11.5 g/dL (12.0-16.0); Mean Corpuscular HGB CONC 33.2 g/dL (32.0-36.0); Mean Corpuscular Hemoglobin 34.3 pg (27.0-31.0); Mean Corpuscular Volume 103.3 fl (78.0-98.0); Mean Platelet Volume 9.8 fL (7.4-10.4); Platelet Count 335 10x3/uL (130-400); RBC Distribution Width 12.4 % (11.5-14.5); Red Blood Cell (RBC) Count 3.35 mill/uL (4.20-5.40)
[2023-04-01] MEDS: HumaLOG 300 UNITS/3 ML VIAL SC PRN ×3 (04:18→22:49)
[2023-04-01] MEDS: Dexamethasone 10 MG/ML VIAL SLOW IVP SCH ×4 (04:20→20:47)
[2023-04-01 04:51] LABS: BUN (Urea Nitrogen) 28 mg/dL (9.8-20.1); Calc. Creatinine Clearance 161 mL/min (70-130); Calcium 7.7 mg/dL (7.8-10.44); Carbon Dioxide 30 mmol/L (22-29); Estimated GFR 106; Glucose 155 mg/dL (70-105)
[2023-04-01 05:22] LABS: Anion Gap 11 mmol/L (10-20); Chloride 106 mmol/L (98-107); Potassium 4.6 mmol/L (3.5-5.1); Sodium 140 mmol/L (136-145)
[2023-04-01] MEDS: cefTRIAXone\\ROCEPHIN 2 GM in Sodium Chloride 0.9% 100 ML IVPB SCH ×2 (08:32→20:47)
[2023-04-01] MEDS: levETIRAcetam 500 MG/5 ML VIAL SLOW IVP SCH ×2 (08:32→20:47)
[2023-04-01] MEDS: Thiamine 100 MG TAB PO SCH (08:33)
[2023-04-01] MEDS: Amlodipine 10 MG TAB PO SCH (08:33)
[2023-04-01] MEDS: Amiodarone 200 MG TAB PO SCH ×3 (08:33→20:47)
[2023-04-01] MEDS: Folic Acid 1 MG TAB PO SCH (08:33)
[2023-04-01] MEDS: Multivit, Therapeutic 1 TAB PO SCH (08:33)
[2023-04-01] MEDS: Metoprolol Tartrate 25 MG TAB PER TUBE SCH ×2 (08:33→20:48)
[2023-04-01] MEDS: Insulin Glargine 30 UNITS/0.3 ML VIAL SC SCH (08:34)
[2023-04-01] MEDS: Pantoprazole 40 MG VIAL IVP SCH (08:51)
[2023-04-01] MEDS: Dexmedetomidine 400 MCG, Admixture Fee 1 EACH in Sodium Chloride 0.9% 96 ML IVPB SCH (16:39)
[2023-04-01] MEDS: Morphine 2 MG/ML VIAL SLOW IVP PRN (17:58)
[2023-04-01] MEDS ORDERED: EPINEPHrine 1 MG/ML VIAL ONE (18:16)
[2023-04-01] MEDS: Lorazepam 2 MG/ML VIAL SLOW IVP PRN ×2 (20:47→21:21)
[2023-04-02] MEDS: Dexmedetomidine 400 MCG, Admixture Fee 1 EACH in Sodium Chloride 0.9% 96 ML IVPB SCH ×3 (04:00→23:06)
[2023-04-02] MEDS: Dexamethasone 10 MG/ML VIAL SLOW IVP SCH ×2 (04:01→10:09)
[2023-04-02 04:13] LABS: #Monocytes 1.1 thou/uL (0.11-0.59); #Neutrophils 14.8 thou/uL (1.40-6.50); %Basophils 0.2 % (0.0-1.0); %Lymphocytes 5.7 % (21.0-51.0); %Monocytes 6.5 % (0.0-10.0); %Neutrophils 86.3 % (42.0-75.0); Hematocrit 33.8 % (36.0-47.0); Hemoglobin 11.4 g/dL (12.0-16.0); Mean Corpuscular HGB CONC 33.7 g/dL (32.0-36.0); Mean Corpuscular Hemoglobin 33.8 pg (27.0-31.0); Mean Corpuscular Volume 100.3 fl (78.0-98.0); Mean Platelet Volume 9.9 fL (7.4-10.4); Platelet Count 337 10x3/uL (130-400); RBC Distribution Width 12.2 % (11.5-14.5); Red Blood Cell (RBC) Count 3.37 mill/uL (4.20-5.40); White Blood Cell (WBC) Count 17.1 10x3/uL (4.8-10.8)
[2023-04-02 04:37] LABS: Anion Gap 8 mmol/L (10-20); BUN (Urea Nitrogen) 25 mg/dL (9.8-20.1); Calc. Creatinine Clearance 170 mL/min (70-130); Calcium 7.4 mg/dL (7.8-10.44); Carbon Dioxide 28 mmol/L (22-29); Chloride 107 mmol/L (98-107); Estimated GFR 106; Glucose 133 mg/dL (70-105); Potassium 4.4 mmol/L (3.5-5.1); Sodium 139 mmol/L (136-145)
[2023-04-02] MEDS: Sodium Chloride 0.45% 1,000 ML IV SCH ×2 (05:46→20:10)
[2023-04-02] MEDS: Thiamine 100 MG TAB PO SCH (07:50)
[2023-04-02] MEDS: Multivit, Therapeutic 1 TAB PO SCH (07:50)
[2023-04-02] MEDS: Folic Acid 1 MG TAB PO SCH (07:50)
[2023-04-02] MEDS: Amlodipine 10 MG TAB PO SCH (07:50)
[2023-04-02] MEDS: Amiodarone 200 MG TAB PO SCH (07:51)
[2023-04-02] MEDS: levETIRAcetam 500 MG/5 ML VIAL SLOW IVP SCH ×2 (07:51→20:18)
[2023-04-02] MEDS: Pantoprazole 40 MG VIAL IVP SCH (07:51)
[2023-04-02] MEDS: cefTRIAXone\\ROCEPHIN 2 GM in Sodium Chloride 0.9% 100 ML IVPB SCH ×2 (07:52→20:17)
[2023-04-02] MEDS: Insulin Glargine 30 UNITS/0.3 ML VIAL SC SCH (07:53)
[2023-04-02] MEDS: Metoprolol Tartrate 25 MG TAB PER TUBE SCH ×2 (09:46→20:18)
[2023-04-02] MEDS: HumaLOG 300 UNITS/3 ML VIAL SC PRN ×2 (10:12→15:30)
[2023-04-02] MEDS: SODIUM CHLORIDE 0.9% IVPB SCH ×2 (15:14→21:39)
[2023-04-02] MEDS: ACYCLOVIR SODIUM IVPB SCH ×2 (15:14→21:39)
[2023-04-03 05:03] LABS: #Monocytes 1.3 thou/uL (0.11-0.59); #Neutrophils 14.6 thou/uL (1.40-6.50); %Basophils 0.1 % (0.0-1.0); %Eosinophils 0.1 % (0.0-10.0); %Lymphocytes 6.5 % (21.0-51.0); %Monocytes 7.4 % (0.0-10.0); %Neutrophils 84.7 % (42.0-75.0); Hematocrit 36.1 % (36.0-47.0); Hemoglobin 12.3 g/dL (12.0-16.0); Mean Corpuscular HGB CONC 34.1 g/dL (32.0-36.0); Mean Corpuscular Hemoglobin 34.2 pg (27.0-31.0); Mean Corpuscular Volume 100.3 fl (78.0-98.0); Platelet Count 360 10x3/uL (130-400); RBC Distribution Width 12.2 % (11.5-14.5); White Blood Cell (WBC) Count 17.2 10x3/uL (4.8-10.8)
[2023-04-03 05:27] LABS: Anion Gap 10 mmol/L (10-20); BUN (Urea Nitrogen) 22 mg/dL (9.8-20.1); Calc. Creatinine Clearance 160 mL/min (70-130); Calcium 7.8 mg/dL (7.8-10.44); Carbon Dioxide 26 mmol/L (22-29); Chloride 106 mmol/L (98-107); Estimated GFR 105; Glucose 115 mg/dL (70-105); Sodium 138 mmol/L (136-145)
[2023-04-03] MEDS: ACYCLOVIR SODIUM IVPB SCH ×3 (06:28→21:45)
[2023-04-03] MEDS: SODIUM CHLORIDE 0.9% IVPB SCH ×3 (06:28→21:45)
[2023-04-03] MEDS: Dexmedetomidine 400 MCG, Admixture Fee 1 EACH in Sodium Chloride 0.9% 96 ML IVPB SCH (09:37)
[2023-04-03] MEDS: Insulin Glargine 30 UNITS/0.3 ML VIAL SC SCH (09:37)
[2023-04-03] MEDS: Pantoprazole 40 MG VIAL IVP SCH (09:38)
[2023-04-03] MEDS: cefTRIAXone\\ROCEPHIN 2 GM in Sodium Chloride 0.9% 100 ML IVPB SCH ×2 (09:38→20:32)
[2023-04-03] MEDS: Folic Acid 1 MG TAB PO SCH (09:39)
[2023-04-03] MEDS: Thiamine 100 MG TAB PO SCH (09:39)
[2023-04-03] MEDS: Metoprolol Tartrate 25 MG TAB PER TUBE SCH ×2 (09:39→20:32)
[2023-04-03] MEDS: Multivit, Therapeutic 1 TAB PO SCH (09:39)
[2023-04-03] MEDS: Amlodipine 10 MG TAB PO SCH (09:39)
[2023-04-03] MEDS: Amiodarone 200 MG TAB PO SCH (09:39)
[2023-04-03] MEDS: levETIRAcetam 500 MG/5 ML VIAL SLOW IVP SCH ×2 (09:41→20:32)
[2023-04-03] MEDS ORDERED: Iopamidol-370 76% 500 ML MDV (1 ML CHARGE) ONE (11:34)
[2023-04-03] MEDS: Sodium Chloride 0.45% 1,000 ML IV SCH ×2 (12:16→20:37)
[2023-04-04 05:02] LABS: #Eosinphils 0.1 thou/uL (0.0-0.7); #Monocytes 1.3 thou/uL (0.11-0.59); #Neutrophils 14.4 thou/uL (1.40-6.50); %Basophils 0.1 % (0.0-1.0); %Eosinophils 0.3 % (0.0-10.0); %Lymphocytes 6.1 % (21.0-51.0); %Monocytes 7.5 % (0.0-10.0); %Neutrophils 85.2 % (42.0-75.0); Hematocrit 34.1 % (36.0-47.0); Hemoglobin 11.7 g/dL (12.0-16.0); Mean Corpuscular HGB CONC 34.3 g/dL (32.0-36.0); Mean Corpuscular Hemoglobin 34.5 pg (27.0-31.0); Mean Corpuscular Volume 100.6 fl (78.0-98.0); Mean Platelet Volume 9.9 fL (7.4-10.4); Platelet Count 357 10x3/uL (130-400); RBC Distribution Width 12.4 % (11.5-14.5); Red Blood Cell (RBC) Count 3.39 mill/uL (4.20-5.40); White Blood Cell (WBC) Count 16.8 10x3/uL (4.8-10.8)
[2023-04-04 05:31] LABS: Anion Gap 9 mmol/L (10-20); BUN (Urea Nitrogen) 16 mg/dL (9.8-20.1); Calc. Creatinine Clearance 165 mL/min (70-130); Carbon Dioxide 27 mmol/L (22-29); Chloride 106 mmol/L (98-107); Potassium 3.6 mmol/L (3.5-5.1); Sodium 138 mmol/L (136-145)
[2023-04-04 05:32] LABS: Calcium 7.8 mg/dL (7.8-10.44); Estimated GFR 106; Glucose 89 mg/dL (70-105)
[2023-04-04] MEDS: SODIUM CHLORIDE 0.9% IVPB SCH ×3 (06:15→21:28)
[2023-04-04] MEDS: ACYCLOVIR SODIUM IVPB SCH ×3 (06:15→21:28)
[2023-04-04] MEDS: cefTRIAXone\\ROCEPHIN 2 GM in Sodium Chloride 0.9% 100 ML IVPB SCH ×2 (08:20→21:26)
[2023-04-04] MEDS: Pantoprazole 40 MG VIAL IVP SCH (08:22)
[2023-04-04] MEDS: levETIRAcetam 500 MG/5 ML VIAL SLOW IVP SCH ×2 (08:22→21:27)
[2023-04-04] MEDS: Amlodipine 10 MG TAB PO SCH (08:23)
[2023-04-04] MEDS: Insulin Glargine 30 UNITS/0.3 ML VIAL SC SCH (08:23)
[2023-04-04] MEDS: Metoprolol Tartrate 25 MG TAB PER TUBE SCH ×2 (08:23→21:28)
[2023-04-04] MEDS: Amiodarone 200 MG TAB PO SCH (08:23)
[2023-04-04] MEDS: Thiamine 100 MG TAB PO SCH (08:23)
[2023-04-04] MEDS: Multivit, Therapeutic 1 TAB PO SCH (08:23)
[2023-04-04] MEDS: Folic Acid 1 MG TAB PO SCH (08:23)
[2023-04-04] MEDS: Sodium Chloride 0.45% 1,000 ML IV SCH (18:45)
[2023-04-05] MEDS: Sodium Chloride 0.45% 1,000 ML IV SCH ×2 (02:16→13:35)
[2023-04-05 04:46] LABS: #Eosinphils 0.1 thou/uL (0.0-0.7); #Monocytes 1.4 thou/uL (0.11-0.59); #Neutrophils 13.8 thou/uL (1.40-6.50); %Basophils 0.1 % (0.0-1.0); %Eosinophils 0.5 % (0.0-10.0); %Lymphocytes 5.8 % (21.0-51.0); %Monocytes 8.8 % (0.0-10.0); %Neutrophils 83.9 % (42.0-75.0); Hematocrit 32.9 % (36.0-47.0); Hemoglobin 11.2 g/dL (12.0-16.0); Mean Corpuscular Hemoglobin 34.1 pg (27.0-31.0); Mean Corpuscular Volume 100.3 fl (78.0-98.0); Mean Platelet Volume 9.9 fL (7.4-10.4); Platelet Count 375 10x3/uL (130-400); RBC Distribution Width 12.6 % (11.5-14.5); Red Blood Cell (RBC) Count 3.28 mill/uL (4.20-5.40); White Blood Cell (WBC) Count 16.4 10x3/uL (4.8-10.8)
[2023-04-05 05:12] LABS: Anion Gap 9 mmol/L (10-20); BUN (Urea Nitrogen) 12 mg/dL (9.8-20.1); Calc. Creatinine Clearance 148 mL/min (70-130); Calcium 7.9 mg/dL (7.8-10.44); Carbon Dioxide 25 mmol/L (22-29); Chloride 109 mmol/L (98-107); Estimated GFR 106; Glucose 117 mg/dL (70-105); Potassium 3.6 mmol/L (3.5-5.1); Sodium 139 mmol/L (136-145)
[2023-04-05] MEDS: ACYCLOVIR SODIUM IVPB SCH ×3 (05:13→21:50)
[2023-04-05] MEDS: SODIUM CHLORIDE 0.9% IVPB SCH ×3 (05:13→21:50)
[2023-04-05] MEDS: cefTRIAXone\\ROCEPHIN 2 GM in Sodium Chloride 0.9% 100 ML IVPB SCH ×2 (08:36→20:15)
[2023-04-05] MEDS: levETIRAcetam 500 MG/5 ML VIAL SLOW IVP SCH ×2 (08:36→20:14)
[2023-04-05] MEDS: Insulin Glargine 30 UNITS/0.3 ML VIAL SC SCH (08:37)
[2023-04-05] MEDS: Pantoprazole 40 MG VIAL IVP SCH (08:37)
[2023-04-05] MEDS: Amlodipine 10 MG TAB PO SCH (08:38)
[2023-04-05] MEDS: Amiodarone 200 MG TAB PO SCH (08:38)
[2023-04-05] MEDS: Thiamine 100 MG TAB PO SCH (08:38)
[2023-04-05] MEDS: Metoprolol Tartrate 25 MG TAB PER TUBE SCH ×2 (08:38→20:14)
[2023-04-05] MEDS: Multivit, Therapeutic 1 TAB PO SCH (08:38)
[2023-04-05] MEDS: Folic Acid 1 MG TAB PO SCH (08:38)
[2023-04-06] MEDS: Sodium Chloride 0.45% 1,000 ML IV SCH ×2 (01:24→17:19)
[2023-04-06 04:36] LABS: #Eosinphils 0.1 thou/uL (0.0-0.7); #Monocytes 1.3 thou/uL (0.11-0.59); %Basophils 0.1 % (0.0-1.0); %Eosinophils 0.9 % (0.0-10.0); %Neutrophils 82.3 % (42.0-75.0); Hematocrit 31.9 % (36.0-47.0); Hemoglobin 10.8 g/dL (12.0-16.0); Mean Corpuscular HGB CONC 33.9 g/dL (32.0-36.0); Mean Corpuscular Hemoglobin 34.5 pg (27.0-31.0); Mean Corpuscular Volume 101.9 fl (78.0-98.0); Mean Platelet Volume 10.2 fL (7.4-10.4); Platelet Count 366 10x3/uL (130-400); RBC Distribution Width 12.8 % (11.5-14.5); Red Blood Cell (RBC) Count 3.13 mill/uL (4.20-5.40); White Blood Cell (WBC) Count 13.3 10x3/uL (4.8-10.8)
[2023-04-06 05:01] LABS: Anion Gap 11 mmol/L (10-20); BUN (Urea Nitrogen) 11 mg/dL (9.8-20.1); Calc. Creatinine Clearance 146 mL/min (70-130); Carbon Dioxide 25 mmol/L (22-29); Chloride 108 mmol/L (98-107); Estimated GFR 105; Glucose 97 mg/dL (70-105); Potassium 3.7 mmol/L (3.5-5.1); Sodium 140 mmol/L (136-145)
[2023-04-06] MEDS: SODIUM CHLORIDE 0.9% IVPB SCH ×3 (06:21→21:23)
[2023-04-06] MEDS: ACYCLOVIR SODIUM IVPB SCH ×3 (06:21→21:23)
[2023-04-06] MEDS: cefTRIAXone\\ROCEPHIN 2 GM in Sodium Chloride 0.9% 100 ML IVPB SCH ×2 (09:46→21:22)
[2023-04-06] MEDS: Pantoprazole 40 MG VIAL IVP SCH (09:48)
[2023-04-06] MEDS: Insulin Glargine 30 UNITS/0.3 ML VIAL SC SCH ×2 (09:48→13:48)
[2023-04-06] MEDS: levETIRAcetam 500 MG/5 ML VIAL SLOW IVP SCH ×2 (09:49→21:22)
[2023-04-06] MEDS: Metoprolol Tartrate 25 MG TAB PER TUBE SCH ×2 (09:49→21:23)
[2023-04-06] MEDS: Multivit, Therapeutic 1 TAB PO SCH (09:49)
[2023-04-06] MEDS: Thiamine 100 MG TAB PO SCH (09:49)
[2023-04-06] MEDS: Folic Acid 1 MG TAB PO SCH (09:49)
[2023-04-06] MEDS: Amlodipine 10 MG TAB PO SCH (09:49)
[2023-04-06] MEDS: Amiodarone 200 MG TAB PO SCH (09:49)
[2023-04-06] MEDS ORDERED: Tranexamic Acid 1,000 MG/10 ML VIAL IVP SCH (11:45)
[2023-04-06] MEDS ORDERED: Tranexamic Acid 1,000 MG in Sodium Chloride 0.9% 100 ML IVPB SCH (12:15)
[2023-04-06] MEDS ORDERED: DC Sedation Protocol FS ONE (20:08)
[2023-04-07 04:49] LABS: #Eosinphils 0.1 thou/uL (0.0-0.7); #Neutrophils 6.5 thou/uL (1.40-6.50); %Basophils 0.2 % (0.0-1.0); %Eosinophils 1.2 % (0.0-10.0); %Monocytes 11.4 % (0.0-10.0); %Neutrophils 73.5 % (42.0-75.0); Hematocrit 31.3 % (36.0-47.0); Hemoglobin 10.7 g/dL (12.0-16.0); Mean Corpuscular HGB CONC 34.2 g/dL (32.0-36.0); Mean Corpuscular Hemoglobin 33.8 pg (27.0-31.0); Platelet Count 368 10x3/uL (130-400); RBC Distribution Width 12.5 % (11.5-14.5); Red Blood Cell (RBC) Count 3.17 mill/uL (4.20-5.40); White Blood Cell (WBC) Count 8.8 10x3/uL (4.8-10.8)
[2023-04-07 04:50] LABS: Mean Corpuscular Volume 98.7 fl (78.0-98.0)
[2023-04-07 05:11] LABS: Phosphorus 2.2 mg/dL (2.3-4.7)
[2023-04-07 05:13] LABS: Anion Gap 12 mmol/L (10-20); BUN (Urea Nitrogen) 12 mg/dL (9.8-20.1); Calc. Creatinine Clearance 152 mL/min (70-130); Carbon Dioxide 22 mmol/L (22-29); Chloride 110 mmol/L (98-107); Estimated GFR 106; Glucose 101 mg/dL (70-105); Potassium 3.8 mmol/L (3.5-5.1); Sodium 140 mmol/L (136-145)
[2023-04-07] MEDS: ACYCLOVIR SODIUM IVPB SCH ×3 (06:15→21:20)
[2023-04-07] MEDS: SODIUM CHLORIDE 0.9% IVPB SCH ×3 (06:15→21:20)
[2023-04-07] MEDS: Sodium Chloride 0.45% 1,000 ML IV SCH ×2 (06:16→09:52)
[2023-04-07] MEDS ORDERED: Magnesium 2 GM/50 ML(in water) 2 GM in Premix 1 BAG IVPB SCH (08:00)
[2023-04-07] MEDS: Insulin Glargine 30 UNITS/0.3 ML VIAL SC SCH (08:08)
[2023-04-07] MEDS: cefTRIAXone\\ROCEPHIN 2 GM in Sodium Chloride 0.9% 100 ML IVPB SCH ×2 (08:09→21:19)
[2023-04-07] MEDS: levETIRAcetam 500 MG/5 ML VIAL SLOW IVP SCH ×2 (08:10→21:20)
[2023-04-07] MEDS: Pantoprazole 40 MG VIAL IVP SCH (08:10)
[2023-04-07] MEDS: Amlodipine 10 MG TAB PO SCH (08:11)
[2023-04-07] MEDS: Folic Acid 1 MG TAB PO SCH (08:11)
[2023-04-07] MEDS: Thiamine 100 MG TAB PO SCH (08:12)
[2023-04-07] MEDS: Metoprolol Tartrate 25 MG TAB PER TUBE SCH ×2 (08:12→21:20)
[2023-04-07] MEDS: Amiodarone 200 MG TAB PO SCH (08:12)
[2023-04-07] MEDS: Multivit, Therapeutic 1 TAB PO SCH (08:12)
[2023-04-07] MEDS ORDERED: Potassium Phosphate 15 MMOL in Sodium Chloride 0.9% 100 ML IVPB SCH (08:45)
[2023-04-08 04:22] LABS: #Eosinphils 0.2 thou/uL (0.0-0.7); #Monocytes 0.9 thou/uL (0.11-0.59); #Neutrophils 4.4 thou/uL (1.40-6.50); %Eosinophils 2.3 % (0.0-10.0); %Lymphocytes 19.7 % (21.0-51.0); %Monocytes 12.8 % (0.0-10.0); %Neutrophils 64.8 % (42.0-75.0); Hematocrit 29.7 % (36.0-47.0); Mean Corpuscular HGB CONC 33.7 g/dL (32.0-36.0); Mean Corpuscular Hemoglobin 34.4 pg (27.0-31.0); Mean Platelet Volume 9.7 fL (7.4-10.4); Platelet Count 440 10x3/uL (130-400); RBC Distribution Width 12.9 % (11.5-14.5); Red Blood Cell (RBC) Count 2.91 mill/uL (4.20-5.40); White Blood Cell (WBC) Count 6.9 10x3/uL (4.8-10.8)
[2023-04-08 04:31] LABS: Mean Corpuscular Volume 102.1 fl (78.0-98.0)
[2023-04-08 05:01] LABS: Anion Gap 11 mmol/L (10-20); BUN (Urea Nitrogen) 13 mg/dL (9.8-20.1); Calc. Creatinine Clearance 162 mL/min (70-130); Carbon Dioxide 21 mmol/L (22-29); Chloride 112 mmol/L (98-107); Estimated GFR 107; Glucose 97 mg/dL (70-105); Potassium 3.8 mmol/L (3.5-5.1); Sodium 140 mmol/L (136-145)
[2023-04-08] MEDS: ACYCLOVIR SODIUM IVPB SCH ×3 (06:04→22:11)
[2023-04-08] MEDS: SODIUM CHLORIDE 0.9% IVPB SCH ×3 (06:04→22:11)
[2023-04-08] MEDS: cefTRIAXone\\ROCEPHIN 2 GM in Sodium Chloride 0.9% 100 ML IVPB SCH ×2 (08:20→20:16)
[2023-04-08] MEDS: Pantoprazole 40 MG VIAL IVP SCH (08:20)
[2023-04-08] MEDS: levETIRAcetam 500 MG/5 ML VIAL SLOW IVP SCH ×2 (08:22→20:16)
[2023-04-08] MEDS: Insulin Glargine 30 UNITS/0.3 ML VIAL SC SCH (08:23)
[2023-04-08] MEDS: Folic Acid 1 MG TAB PO SCH (08:24)
[2023-04-08] MEDS: Metoprolol Tartrate 25 MG TAB PER TUBE SCH ×2 (08:24→20:16)
[2023-04-08] MEDS: Amiodarone 200 MG TAB PO SCH (08:24)
[2023-04-08] MEDS: Multivit, Therapeutic 1 TAB PO SCH (08:24)
[2023-04-08] MEDS: Thiamine 100 MG TAB PO SCH (08:24)
[2023-04-08] MEDS: Amlodipine 10 MG TAB PO SCH (08:24)
[2023-04-08] MEDS: Sodium Chloride 0.45% 1,000 ML IV SCH (08:26)
[2023-04-09] MEDS: Sodium Chloride 0.45% 1,000 ML IV SCH ×2 (00:45→11:44)
[2023-04-09 04:55] LABS: #Eosinphils 0.2 thou/uL (0.0-0.7); #Monocytes 0.6 thou/uL (0.11-0.59); #Neutrophils 4.5 thou/uL (1.40-6.50); %Basophils 0.2 % (0.0-1.0); %Eosinophils 2.3 % (0.0-10.0); %Lymphocytes 17.7 % (21.0-51.0); %Monocytes 8.9 % (0.0-10.0); %Neutrophils 70.3 % (42.0-75.0); Hematocrit 29.6 % (36.0-47.0); Mean Corpuscular HGB CONC 33.8 g/dL (32.0-36.0); Mean Corpuscular Hemoglobin 34.5 pg (27.0-31.0); Mean Corpuscular Volume 102.1 fl (78.0-98.0); Mean Platelet Volume 9.2 fL (7.4-10.4); Platelet Count 414 10x3/uL (130-400); White Blood Cell (WBC) Count 6.4 10x3/uL (4.8-10.8)
[2023-04-09 05:47] LABS: Anion Gap 12 mmol/L (10-20); BUN (Urea Nitrogen) 10 mg/dL (9.8-20.1); Calc. Creatinine Clearance 164 mL/min (70-130); Calcium 8.2 mg/dL (7.8-10.44); Carbon Dioxide 22 mmol/L (22-29); Chloride 110 mmol/L (98-107); Estimated GFR 109; Glucose 88 mg/dL (70-105); Potassium 3.7 mmol/L (3.5-5.1); Sodium 140 mmol/L (136-145)
[2023-04-09] MEDS: Amiodarone 200 MG TAB PO SCH (09:00)
[2023-04-09] MEDS: Amlodipine 10 MG TAB PO SCH (09:00)
[2023-04-09] MEDS: Lansoprazole 15 MG/5 ML (BATCHED)UDCUP PER TUBE SCH (09:00)
[2023-04-09] MEDS: Insulin Glargine 30 UNITS/0.3 ML VIAL SC SCH (09:00)
[2023-04-09] MEDS: Folic Acid 1 MG TAB PO SCH (09:00)
[2023-04-09] MEDS: levETIRAcetam 500 MG/5 ML VIAL SLOW IVP SCH ×2 (09:01→20:37)
[2023-04-09] MEDS: Thiamine 100 MG TAB PO SCH (09:01)
[2023-04-09] MEDS: Multivit, Therapeutic 1 TAB PO SCH (09:01)
[2023-04-09] MEDS: Metoprolol Tartrate 25 MG TAB PER TUBE SCH ×2 (09:01→20:37)
[2023-04-10] MEDS: Sodium Chloride 0.45% 1,000 ML IV SCH ×2 (00:30→18:10)
[2023-04-10 03:41] LABS: Hematocrit 28.3 % (36.0-47.0); Hemoglobin 9.6 g/dL (12.0-16.0); Manual Diff?? YES; Mean Corpuscular HGB CONC 33.9 g/dL (32.0-36.0); Mean Corpuscular Hemoglobin 34.7 pg (27.0-31.0); Mean Corpuscular Volume 102.2 fl (78.0-98.0); Mean Platelet Volume 9.1 fL (7.4-10.4); Platelet Count 422 10x3/uL (130-400); RBC Distribution Width 13.1 % (11.5-14.5); Red Blood Cell (RBC) Count 2.77 mill/uL (4.20-5.40); White Blood Cell (WBC) Count 6.5 10x3/uL (4.8-10.8)
[2023-04-10 04:02] LABS: Delete Auto Diff?? YES
[2023-04-10 04:03] LABS: Anion Gap 11 mmol/L (10-20); BUN (Urea Nitrogen) 14 mg/dL (9.8-20.1); Calc. Creatinine Clearance 146 mL/min (70-130); Calcium 8.2 mg/dL (7.8-10.44); Carbon Dioxide 24 mmol/L (22-29); Chloride 109 mmol/L (98-107); Estimated GFR 106; Glucose 89 mg/dL (70-105); Potassium 3.8 mmol/L (3.5-5.1); Sodium 140 mmol/L (136-145)
[2023-04-10 04:53] LABS: Band 1 % (5-11); CellaVision Operator ID lab.abc; Eosinophils 1 % (0-10); Lymphocytes 15 % (21-51); Macrocytosis SLIGHT = 6-15 cells HPF (0-5); Monocytes 3 % (0-10); Neutrophil 77 % (42-75); Platelet Adequacy Comment Platelets Normal; Reactive Lymphocytes 1 % (0-10); Total Cell Count 100
[2023-04-10] MEDS: Folic Acid 1 MG TAB PO SCH (09:38)
[2023-04-10] MEDS: Amlodipine 10 MG TAB PO SCH (09:38)
[2023-04-10] MEDS: Amiodarone 200 MG TAB PO SCH (09:38)
[2023-04-10] MEDS: Insulin Glargine 30 UNITS/0.3 ML VIAL SC SCH (09:38)
[2023-04-10] MEDS: Metoprolol Tartrate 25 MG TAB PER TUBE SCH ×2 (09:39→21:36)
[2023-04-10] MEDS: Multivit, Therapeutic 1 TAB PO SCH (09:39)
[2023-04-10] MEDS: levETIRAcetam 500 MG/5 ML VIAL SLOW IVP SCH ×2 (09:39→21:35)
[2023-04-10] MEDS: Thiamine 100 MG TAB PO SCH (09:39)
[2023-04-10] MEDS: Lansoprazole 15 MG/5 ML (BATCHED)UDCUP PER TUBE SCH (14:38)
[2023-04-11] MEDS: Sodium Chloride 0.45% 1,000 ML IV SCH ×2 (03:59→18:42)
[2023-04-11 04:09] LABS: #Eosinphils 0.1 thou/uL (0.0-0.7); #Monocytes 0.5 thou/uL (0.11-0.59); %Basophils 0.1 % (0.0-1.0); %Eosinophils 1.9 % (0.0-10.0); %Lymphocytes 18.7 % (21.0-51.0); %Monocytes 7.4 % (0.0-10.0); %Neutrophils 71.6 % (42.0-75.0); Hematocrit 29.2 % (36.0-47.0); Hemoglobin 9.9 g/dL (12.0-16.0); Mean Corpuscular HGB CONC 33.9 g/dL (32.0-36.0); Mean Corpuscular Hemoglobin 34.7 pg (27.0-31.0); Mean Corpuscular Volume 102.5 fl (78.0-98.0); Mean Platelet Volume 9.4 fL (7.4-10.4); Platelet Count 414 10x3/uL (130-400); RBC Distribution Width 13.1 % (11.5-14.5); Red Blood Cell (RBC) Count 2.85 mill/uL (4.20-5.40)
[2023-04-11 04:34] LABS: Anion Gap 12 mmol/L (10-20); BUN (Urea Nitrogen) 16 mg/dL (9.8-20.1); Calc. Creatinine Clearance 142 mL/min (70-130); Calcium 8.5 mg/dL (7.8-10.44); Carbon Dioxide 24 mmol/L (22-29); Chloride 109 mmol/L (98-107); Estimated GFR 106; Glucose 92 mg/dL (70-105); Sodium 141 mmol/L (136-145)
[2023-04-11] MEDS: Insulin Glargine 30 UNITS/0.3 ML VIAL SC SCH (10:09)
[2023-04-11] MEDS: Amiodarone 200 MG TAB PO SCH (10:09)
[2023-04-11] MEDS: Folic Acid 1 MG TAB PO SCH (10:09)
[2023-04-11] MEDS: Amlodipine 10 MG TAB PO SCH (10:09)
[2023-04-11] MEDS: Lansoprazole 15 MG/5 ML (BATCHED)UDCUP PER TUBE SCH (10:09)
[2023-04-11] MEDS: levETIRAcetam 500 MG/5 ML VIAL SLOW IVP SCH ×2 (10:10→20:42)
[2023-04-11] MEDS: Metoprolol Tartrate 25 MG TAB PER TUBE SCH ×2 (10:10→20:43)
[2023-04-11] MEDS: Thiamine 100 MG TAB PO SCH (10:10)
[2023-04-11] MEDS: Multivit, Therapeutic 1 TAB PO SCH (10:10)
[2023-04-12 04:07] LABS: #Eosinphils 0.2 thou/uL (0.0-0.7); #Monocytes 0.5 thou/uL (0.11-0.59); #Neutrophils 3.4 thou/uL (1.40-6.50); %Basophils 0.2 % (0.0-1.0); %Lymphocytes 24.4 % (21.0-51.0); %Monocytes 8.4 % (0.0-10.0); %Neutrophils 63.6 % (42.0-75.0); Hematocrit 29.3 % (36.0-47.0); Hemoglobin 9.7 g/dL (12.0-16.0); Mean Corpuscular HGB CONC 33.1 g/dL (32.0-36.0); Mean Corpuscular Hemoglobin 33.9 pg (27.0-31.0); Mean Corpuscular Volume 102.4 fl (78.0-98.0); Mean Platelet Volume 8.8 fL (7.4-10.4); Platelet Count 387 10x3/uL (130-400); RBC Distribution Width 13.2 % (11.5-14.5); Red Blood Cell (RBC) Count 2.86 mill/uL (4.20-5.40); White Blood Cell (WBC) Count 5.4 10x3/uL (4.8-10.8)
[2023-04-12 04:31] LABS: Anion Gap 12 mmol/L (10-20); BUN (Urea Nitrogen) 17 mg/dL (9.8-20.1); Calc. Creatinine Clearance 133 mL/min (70-130); Calcium 8.6 mg/dL (7.8-10.44); Carbon Dioxide 23 mmol/L (22-29); Chloride 110 mmol/L (98-107); Estimated GFR 104; Glucose 84 mg/dL (70-105); Potassium 3.7 mmol/L (3.5-5.1); Sodium 141 mmol/L (136-145)
[2023-04-12] MEDS: Sodium Chloride 0.45% 1,000 ML IV SCH ×2 (05:44→20:37)
[2023-04-12] MEDS: Amiodarone 200 MG TAB PO SCH (09:53)
[2023-04-12] MEDS: Folic Acid 1 MG TAB PO SCH (09:53)
[2023-04-12] MEDS: Thiamine 100 MG TAB PO SCH (09:53)
[2023-04-12] MEDS: Insulin Glargine 30 UNITS/0.3 ML VIAL SC SCH (09:53)
[2023-04-12] MEDS: Metoprolol Tartrate 25 MG TAB PER TUBE SCH ×2 (09:53→20:37)
[2023-04-12] MEDS: Amlodipine 10 MG TAB PO SCH (09:53)
[2023-04-12] MEDS: Multivit, Therapeutic 1 TAB PO SCH (09:53)
[2023-04-12] MEDS: Lansoprazole 15 MG/5 ML (BATCHED)UDCUP PER TUBE SCH (09:54)
[2023-04-12] MEDS: levETIRAcetam 500 MG/5 ML VIAL SLOW IVP SCH ×2 (09:54→20:37)
[2023-04-13] MEDS ORDERED: Melatonin 3 MG TAB PO SCH (01:00)
[2023-04-13] MEDS: Acetaminophen 325 MG TAB PO PRN (01:07)
[2023-04-13] MEDS ORDERED: OLANZapine 10 MG VIAL IM SCH (02:00)
[2023-04-13] MEDS ORDERED: Sterile Water 10 ML VIAL FS PRN (02:00)
[2023-04-13 06:28] LABS: #Eosinphils 0.2 thou/uL (0.0-0.7); #Monocytes 0.7 thou/uL (0.11-0.59); #Neutrophils 2.8 thou/uL (1.40-6.50); %Basophils 0.6 % (0.0-1.0); %Eosinophils 3.6 % (0.0-10.0); %Lymphocytes 31.2 % (21.0-51.0); %Monocytes 12.3 % (0.0-10.0); %Neutrophils 52.1 % (42.0-75.0); Hematocrit 32.9 % (36.0-47.0); Mean Corpuscular HGB CONC 33.4 g/dL (32.0-36.0); Mean Corpuscular Hemoglobin 34.7 pg (27.0-31.0); Mean Corpuscular Volume 103.8 fl (78.0-98.0); Platelet Count 355 10x3/uL (130-400); RBC Distribution Width 13.4 % (11.5-14.5); Red Blood Cell (RBC) Count 3.17 mill/uL (4.20-5.40); White Blood Cell (WBC) Count 5.3 10x3/uL (4.8-10.8)
[2023-04-13 06:50] LABS: Anion Gap 13 mmol/L (10-20); BUN (Urea Nitrogen) 16 mg/dL (9.8-20.1); Calc. Creatinine Clearance 119 mL/min (70-130); Calcium 9.1 mg/dL (7.8-10.44); Carbon Dioxide 24 mmol/L (22-29); Chloride 109 mmol/L (98-107); Estimated GFR 100; Glucose 76 mg/dL (70-105); Potassium 4.1 mmol/L (3.5-5.1); Sodium 142 mmol/L (136-145)
[2023-04-13] MEDS: Folic Acid 1 MG TAB PO SCH (08:23)
[2023-04-13] MEDS: Amiodarone 200 MG TAB PO SCH (08:23)
[2023-04-13] MEDS: Amlodipine 10 MG TAB PO SCH (08:23)
[2023-04-13] MEDS: Multivit, Therapeutic 1 TAB PO SCH (08:23)
[2023-04-13] MEDS: Thiamine 100 MG TAB PO SCH (08:23)
[2023-04-13] MEDS: Insulin Glargine 30 UNITS/0.3 ML VIAL SC SCH (08:24)
[2023-04-13] MEDS: Sodium Chloride 0.45% 1,000 ML IV SCH ×2 (08:25→21:05)
[2023-04-13] MEDS: levETIRAcetam 500 MG/5 ML VIAL SLOW IVP SCH ×2 (08:25→21:05)
[2023-04-13] MEDS: Metoprolol Tartrate 25 MG TAB PER TUBE SCH ×2 (09:06→21:05)
[2023-04-13] MEDS: Lansoprazole 15 MG/5 ML (BATCHED)UDCUP PER TUBE SCH (09:24)
[2023-04-13] MEDS ORDERED: levETIRAcetam 500 MG/5 ML VIAL SLOW IVP SCH ×2 (11:05→11:15)
[2023-04-14 05:14] LABS: #Basophils 0.1 thou/uL (0.0-0.2); #Eosinphils 0.2 thou/uL (0.0-0.7); #Monocytes 0.6 thou/uL (0.11-0.59); #Neutrophils 3.5 thou/uL (1.40-6.50); %Basophils 1.1 % (0.0-1.0); %Eosinophils 3.7 % (0.0-10.0); %Lymphocytes 23.9 % (21.0-51.0); %Neutrophils 61.1 % (42.0-75.0); Hematocrit 33.9 % (36.0-47.0); Hemoglobin 11.1 g/dL (12.0-16.0); Mean Corpuscular HGB CONC 32.7 g/dL (32.0-36.0); Mean Corpuscular Hemoglobin 33.9 pg (27.0-31.0); Mean Corpuscular Volume 103.7 fl (78.0-98.0); Mean Platelet Volume 8.9 fL (7.4-10.4); Platelet Count 389 10x3/uL (130-400); RBC Distribution Width 13.8 % (11.5-14.5); Red Blood Cell (RBC) Count 3.27 mill/uL (4.20-5.40); White Blood Cell (WBC) Count 5.7 10x3/uL (4.8-10.8)
[2023-04-14 06:19] LABS: Anion Gap 15 mmol/L (10-20); BUN (Urea Nitrogen) 13 mg/dL (9.8-20.1); Calc. Creatinine Clearance 113 mL/min (70-130); Calcium 9.1 mg/dL (7.8-10.44); Carbon Dioxide 20 mmol/L (22-29); Chloride 110 mmol/L (98-107); Estimated GFR 94; Glucose 81 mg/dL (70-105); Potassium 4.2 mmol/L (3.5-5.1); Sodium 141 mmol/L (136-145)
[2023-04-14] MEDS: Folic Acid 1 MG TAB PO SCH (09:13)
[2023-04-14] MEDS: Thiamine 100 MG TAB PO SCH (09:13)
[2023-04-14] MEDS: Multivit, Therapeutic 1 TAB PO SCH (09:13)
[2023-04-14] MEDS: Lansoprazole 15 MG/5 ML (BATCHED)UDCUP PER TUBE SCH (09:13)
[2023-04-14] MEDS: levETIRAcetam 500 MG/5 ML VIAL SLOW IVP SCH ×2 (09:13→20:47)
[2023-04-14] MEDS: Amiodarone 200 MG TAB PO SCH (09:13)
[2023-04-14] MEDS: Amlodipine 10 MG TAB PO SCH (09:13)
[2023-04-14] MEDS: Metoprolol Tartrate 25 MG TAB PER TUBE SCH ×2 (09:14→20:48)
[2023-04-14] MEDS: Insulin Glargine 30 UNITS/0.3 ML VIAL SC SCH (09:15)
[2023-04-14] MEDS: Senokot S 8.6-50 MG TAB PER TUBE SCH ×2 (11:08→20:48)
[2023-04-14] MEDS: Polyethylene Glycol 3350 17 GM Packet PER TUBE SCH (11:08)
[2023-04-14] MEDS: Sodium Chloride 0.45% 1,000 ML IV SCH (11:11)
[2023-04-14 14:05] VITALS: BMI 28.0
[2023-04-15] MEDS: Sodium Chloride 0.45% 1,000 ML IV SCH ×2 (04:11→17:35)
[2023-04-15] MEDS: Folic Acid 1 MG TAB PO SCH (11:29)
[2023-04-15] MEDS: Amiodarone 200 MG TAB PO SCH (11:29)
[2023-04-15] MEDS: Multivit, Therapeutic 1 TAB PO SCH (11:29)
[2023-04-15] MEDS: Metoprolol Tartrate 25 MG TAB PER TUBE SCH ×2 (11:30→20:35)
[2023-04-15] MEDS: Amlodipine 10 MG TAB PO SCH (11:30)
[2023-04-15] MEDS: Insulin Glargine 30 UNITS/0.3 ML VIAL SC SCH (11:30)
[2023-04-15] MEDS: Senokot S 8.6-50 MG TAB PER TUBE SCH ×2 (11:30→20:35)
[2023-04-15] MEDS: Polyethylene Glycol 3350 17 GM Packet PER TUBE SCH (11:30)
[2023-04-15] MEDS: Thiamine 100 MG TAB PO SCH (11:30)
[2023-04-15] MEDS: Lansoprazole 15 MG/5 ML (BATCHED)UDCUP PER TUBE SCH (11:31)
[2023-04-15] MEDS: levETIRAcetam 500 MG/5 ML VIAL SLOW IVP SCH ×2 (11:31→20:35)
[2023-04-16] MEDS: Sodium Chloride 0.45% 1,000 ML IV SCH (03:42)
[2023-04-16] MEDS: Lansoprazole 15 MG/5 ML (BATCHED)UDCUP PER TUBE SCH (09:01)
[2023-04-16] MEDS: Amlodipine 10 MG TAB PO SCH (09:02)
[2023-04-16] MEDS: Multivit, Therapeutic 1 TAB PO SCH (09:02)
[2023-04-16] MEDS: Polyethylene Glycol 3350 17 GM Packet PER TUBE SCH (09:02)
[2023-04-16] MEDS: Thiamine 100 MG TAB PO SCH (09:02)
[2023-04-16] MEDS: Amiodarone 200 MG TAB PO SCH (09:02)
[2023-04-16] MEDS: Aspirin 81 mg Enteric Coated Tablet PO SCH (09:02)
[2023-04-16] MEDS: Folic Acid 1 MG TAB PO SCH (09:02)
[2023-04-16] MEDS: Senokot S 8.6-50 MG TAB PER TUBE SCH ×2 (09:02→20:02)
[2023-04-16] MEDS: Metoprolol Tartrate 25 MG TAB PER TUBE SCH ×2 (09:03→20:02)
[2023-04-16] MEDS: Insulin Glargine 30 UNITS/0.3 ML VIAL SC SCH (09:03)
[2023-04-16] MEDS: levETIRAcetam 500 MG/5 ML VIAL SLOW IVP SCH ×2 (09:03→20:02)
[2023-04-17] MEDS: Amlodipine 10 MG TAB PO SCH (09:24)
[2023-04-17] MEDS: Aspirin 81 mg Enteric Coated Tablet PO SCH (09:24)
[2023-04-17] MEDS: levETIRAcetam 500 MG/5 ML VIAL SLOW IVP SCH ×2 (09:24→20:23)
[2023-04-17] MEDS: Amiodarone 200 MG TAB PO SCH (09:24)
[2023-04-17] MEDS: Folic Acid 1 MG TAB PO SCH (09:24)
[2023-04-17] MEDS: Senokot S 8.6-50 MG TAB PER TUBE SCH ×2 (09:24→20:23)
[2023-04-17] MEDS: Polyethylene Glycol 3350 17 GM Packet PER TUBE SCH (09:24)
[2023-04-17] MEDS: Metoprolol Tartrate 25 MG TAB PER TUBE SCH ×2 (09:26→20:23)
[2023-04-17] MEDS: Insulin Glargine 30 UNITS/0.3 ML VIAL SC SCH (09:26)
[2023-04-17] MEDS: Multivit, Therapeutic 1 TAB PO SCH (09:26)
[2023-04-17] MEDS: Lansoprazole 15 MG/5 ML (BATCHED)UDCUP PER TUBE SCH (09:33)
[2023-04-17] MEDS: Thiamine 100 MG TAB PO SCH (09:33)
[2023-04-18] MEDS: Polyethylene Glycol 3350 17 GM Packet PER TUBE SCH (08:28)
[2023-04-18] MEDS: Insulin Glargine 30 UNITS/0.3 ML VIAL SC SCH (08:28)
[2023-04-18] MEDS: Amiodarone 200 MG TAB PO SCH (08:28)
[2023-04-18] MEDS: Thiamine 100 MG TAB PO SCH (08:29)
[2023-04-18] MEDS: Senokot S 8.6-50 MG TAB PER TUBE SCH ×2 (08:29→20:18)
[2023-04-18] MEDS: Amlodipine 10 MG TAB PO SCH (08:29)
[2023-04-18] MEDS: Folic Acid 1 MG TAB PO SCH (08:29)
[2023-04-18] MEDS: Aspirin 81 mg Enteric Coated Tablet PO SCH (08:29)
[2023-04-18] MEDS: levETIRAcetam 500 MG/5 ML VIAL SLOW IVP SCH ×2 (08:29→20:18)
[2023-04-18] MEDS: Metoprolol Tartrate 25 MG TAB PER TUBE SCH ×2 (08:29→20:21)
[2023-04-18] MEDS: Multivit, Therapeutic 1 TAB PO SCH (08:29)
[2023-04-18] MEDS: Lansoprazole 15 MG/5 ML (BATCHED)UDCUP PER TUBE SCH (08:48)
[2023-04-19 08:39] LABS: Hemoglobin 10.4 g/dL (12.0-16.0); Manual Diff?? YES; Mean Corpuscular HGB CONC 33.5 g/dL (32.0-36.0); Mean Corpuscular Hemoglobin 34.9 pg (27.0-31.0); Mean Platelet Volume 9.1 fL (7.4-10.4); Platelet Count 281 10x3/uL (130-400); RBC Distribution Width 14.3 % (11.5-14.5); Red Blood Cell (RBC) Count 2.98 mill/uL (4.20-5.40); White Blood Cell (WBC) Count 4.4 10x3/uL (4.8-10.8)
[2023-04-19 08:57] LABS: Anion Gap 13 mmol/L (10-20); BUN (Urea Nitrogen) 17 mg/dL (9.8-20.1); Calc. Creatinine Clearance 111 mL/min (70-130); Calcium 9.3 mg/dL (7.8-10.44); Carbon Dioxide 23 mmol/L (22-29); Chloride 107 mmol/L (98-107); Estimated GFR 92; Glucose 75 mg/dL (70-105); Potassium 3.5 mmol/L (3.5-5.1); Sodium 139 mmol/L (136-145)
[2023-04-19 09:05] LABS: Delete Auto Diff?? YES
[2023-04-19] MEDS: Polyethylene Glycol 3350 17 GM Packet PER TUBE SCH (09:30)
[2023-04-19] MEDS: Multivit, Therapeutic 1 TAB PO SCH (09:30)
[2023-04-19] MEDS: Amiodarone 200 MG TAB PO SCH (09:30)
[2023-04-19] MEDS: Amlodipine 10 MG TAB PO SCH (09:30)
[2023-04-19] MEDS: Senokot S 8.6-50 MG TAB PER TUBE SCH ×2 (09:30→20:37)
[2023-04-19] MEDS: Thiamine 100 MG TAB PO SCH (09:31)
[2023-04-19] MEDS: Metoprolol Tartrate 25 MG TAB PER TUBE SCH ×2 (09:31→20:35)
[2023-04-19] MEDS: Folic Acid 1 MG TAB PO SCH (09:31)
[2023-04-19] MEDS: Aspirin 81 mg Enteric Coated Tablet PO SCH (09:31)
[2023-04-19] MEDS: Lansoprazole 15 MG/5 ML (BATCHED)UDCUP PER TUBE SCH (09:31)
[2023-04-19] MEDS: levETIRAcetam 500 MG/5 ML VIAL SLOW IVP SCH ×2 (09:31→20:35)
[2023-04-19 09:38] LABS: Band 7 % (5-11); CellaVision Operator ID LAB.GE; Eosinophils 8 % (0-10); Lymphocytes 46 % (21-51); Macrocytosis SLIGHT = 6-15 cells HPF (0-5); Monocytes 9 % (0-10); Neutrophil 29 % (42-75); Platelet Adequacy Comment Platelets Normal; Polychromasia SLIGHT = 2-3 cells HPF (0-2); Reactive Lymphocytes 1 % (0-10); Total Cell Count 101
[2023-04-19] MEDS ORDERED: Potassium Chloride 20 MEQ TAB PO SCH (11:00)
[2023-04-19] MEDS ORDERED: Potassium Bicarbonate/Cit Ac 20 MEQ TAB PER TUBE SCH (11:00)
[2023-04-19] MEDS: Acetaminophen 325 MG TAB PO PRN (20:35)
[2023-04-20] MEDS: Thiamine 100 MG TAB PO SCH (09:55)
[2023-04-20] MEDS: Folic Acid 1 MG TAB PO SCH (09:55)
[2023-04-20] MEDS: Aspirin 81 mg Enteric Coated Tablet PO SCH (09:55)
[2023-04-20] MEDS: levETIRAcetam 500 MG/5 ML VIAL SLOW IVP SCH (09:55)
[2023-04-20] MEDS: Amiodarone 200 MG TAB PO SCH (09:55)
[2023-04-20] MEDS: Polyethylene Glycol 3350 17 GM Packet PER TUBE SCH (09:55)
[2023-04-20] MEDS: Multivit, Therapeutic 1 TAB PO SCH (09:56)
[2023-04-20] MEDS: Amlodipine 10 MG TAB PO SCH (09:56)
[2023-04-20] MEDS: Lansoprazole 15 MG/5 ML (BATCHED)UDCUP PER TUBE SCH (10:05)
[2023-04-20] MEDS: Metoprolol Tartrate 25 MG TAB PER TUBE SCH (10:05)
[2023-04-20] MEDS: Senokot S 8.6-50 MG TAB PER TUBE SCH (10:05)
[2023-04-20 14:27] VITALS: BP 128/76; TEMP 98
== END 2023-04-20 13:47 | disposition hospice, inpatient (51) | DRG 4 ==
LOC: ERS 17:02 → CCU 20:29 → IMCU/EMU 04-07 15:36 → T4-B 04-14 19:28
PROVIDERS: ADMIT Student in an Organized Health Care Education/Training Program; ATTEND Family Medicine
PROC: 05HN33Z Insertion of Infusion Device into Left Internal Jugular Vein, Percutaneous Approach (ICD-10-PCS; principal; 2023-03-23)
PROC: 5A1955Z Respiratory Ventilation, Greater than 96 Consecutive Hours (ICD-10-PCS; 2023-03-23)
PROC: 4A133R1 Monitoring of Arterial Saturation, Peripheral, Percutaneous Approach (ICD-10-PCS; 2023-03-23)
PROC: 3E03329 Introduction of Other Anti-infective into Peripheral Vein, Percutaneous Approach (ICD-10-PCS; 2023-03-23)
PROC: 0BH17EZ Insertion of Endotracheal Airway into Trachea, Via Natural or Artificial Opening (ICD-10-PCS; 2023-03-23)
PROC: 009U3ZX Drainage of Spinal Canal, Percutaneous Approach, Diagnostic (ICD-10-PCS; 2023-03-23)
PROC: 4A10X4Z Monitoring of Central Nervous Electrical Activity, External Approach (ICD-10-PCS; 2023-03-24)
PROC: 0B110F4 Bypass Trachea to Cutaneous with Tracheostomy Device, Open Approach (ICD-10-PCS; 2023-03-30)
PROC: 0DH63UZ Insertion of Feeding Device into Stomach, Percutaneous Approach (ICD-10-PCS; 2023-03-30)
PROC: 0BC18ZZ Extirpation of Matter from Trachea, Via Natural or Artificial Opening Endoscopic (ICD-10-PCS; 2023-03-31)
DX: A41.9 Sepsis, unspecified organism (principal); G00.1 Pneumococcal meningitis; G93.41 Metabolic encephalopathy; J96.00 Acute respiratory failure, unspecified whether with hypoxia or hypercapnia; R65.21 Severe sepsis with septic shock; J96.01 Acute respiratory failure with hypoxia; I63.9 Cerebral infarction, unspecified; G93.6 Cerebral edema; I16.1 Hypertensive emergency; E87.20 Acidosis, unspecified; E87.3 Alkalosis; E87.0 Hyperosmolality and hypernatremia; J95.01 Hemorrhage from tracheostomy stoma; E46 Unspecified protein-calorie malnutrition; E44.1 Mild protein-calorie malnutrition; K94.21 Gastrostomy hemorrhage; B00.9 Herpesviral infection, unspecified; I10 Essential (primary) hypertension; J45.909 Unspecified asthma, uncomplicated; C50.919 Malignant neoplasm of unspecified site of unspecified female breast; E87.6 Hypokalemia; E83.39 Other disorders of phosphorus metabolism; D72.9 Disorder of white blood cells, unspecified; I48.91 Unspecified atrial fibrillation; D72.828 Other elevated white blood cell count; I48.0 Paroxysmal atrial fibrillation; Z90.49 Acquired absence of other specified parts of digestive tract; Z78.1 Physical restraint status; Z98.890 Other specified postprocedural states; Z90.89 Acquired absence of other organs; Z88.0 Allergy status to penicillin; R13.12 Dysphagia, oropharyngeal phase; Z68.28 Body mass index [BMI] 28.0-28.9, adult; Z11.52 Encounter for screening for COVID-19
CPT/HCPCS: 31500; 36415; 36416; 36556; 36600; 51702; 62270; 70450; 70470; 70496; 70498; 70551; 71045; 80048; 80053; 80074; 80202; 81001; 82140; 82550; 82805; 82945; 83605; 83735; 83880; 84100; 84145; 84157; 84443; 84484; 85025; 85049; 85060; 85300; 85362; 85379; 85384; 85610; 85730; 86850; 86900; 86901; 87040; 87070; 87077; 87149; 87186; 87205; 87340; 89051; 93005; 93010; 93306; 94003; 94640; 95711; 95819; 96365; 96366; 96367; 96375; 96376; 99292; C1889; C9113; J0133; J0171; J0282; J0360; J0692; J0696; J1100; J1650; J1815; J1885; J1953; J2001; J2060; J2185; J2272; J2405; J3010; J3370; J3370-JW; J3475; J3480; J3490; J7042; J7050; J7070; J7120; Q9967; S0020